=== PATIENT | female | born 1950 | race Caucasian/White ===

== ENCOUNTER 2016-11-11 15:41 | Inpatient (IN) | payer OTHER, BC ==
[~2016-11-11] VITALS: Ht 157.5 cm; Wt 111.1 kg
[2016-11-11] MEDS ORDERED: ACETAMINOPHEN 325 MG TAB PO PRN (21:00)
[2016-11-11] MEDS ORDERED: PATIENT'S ALLERGY INFO NEEDS ENTERED SCH (21:00)
[2016-11-11] MEDS ORDERED: INSPMPNVLG (21:03)
[2016-11-11] MEDS ORDERED: SEVE800T7 PO (21:03)
[2016-11-11] MEDS ORDERED: PRMT10 PO (21:03)
[2016-11-11] MEDS ORDERED: RIFA550T2 PO (21:03)
[2016-11-11] MEDS ORDERED: PANT40TA PO (21:03)
[2016-11-11] MEDS ORDERED: B-CO1CAP17 PO (21:03)
[2016-11-11] MEDS ORDERED: NITR0.4S76 (21:03)
[2016-11-11] MEDS ORDERED: ESTR0.5T3 PO (21:03)
[2016-11-11] MEDS ORDERED: [UNRECOGNIZED DRUG - CODE] PO (21:03)
[2016-11-11] MEDS ORDERED: INSDGIPEN SC (21:03)
[2016-11-11] MEDS ORDERED: LORA-741 PO (21:03)
[2016-11-11] MEDS ORDERED: ZCR20 PO (21:03)
[2016-11-11] MEDS ORDERED: LACT10SO17 (21:03)
[2016-11-11] MEDS ORDERED: ONDA4TAB46 PO (21:03)
[2016-11-11] MEDS ORDERED: GABA-112 PO (21:03)
[2016-11-11 21:13] VITALS: BP 110/62; PULSE 70; TEMP 36.6; O2SAT 98; BMI 43.8
[2016-11-11] MEDS ORDERED: DEXTROSE 50% 50 ML SYR IV PRN (22:45)
[2016-11-11] MEDS ORDERED: GLUCOSE 10 TABS/TUBE PO PRN (22:45)
[2016-11-11] MEDS ORDERED: GLUCAGON FOR INJ 1 MG VIAL SQ PRN (22:45)
[2016-11-11] MEDS ORDERED: GLUCOSE 40% GEL 15 GM TUBE PO PRN (22:45)
[2016-11-11] MEDS ORDERED: LACTULOSE SYRUP 30 GM/45 ML UDP PO PRN (23:00)
[2016-11-11 23:05] LABS: HEMATOCRIT 30.1 % (37-47); MEAN CELL VOLUME 97.4 fL (80-100); MEAN CORPUSCULAR HEMOGLOBIN 31.1 pg (25-34); MEAN PLATELET VOLUME 11.9 fL (7.4-10.4); PLATELET COUNT 128 K/uL (130-400); RED BLOOD COUNT 3.09 M/uL (4.2-5.4); WHITE BLOOD COUNT 6.09 K/uL (4.8-10.8)
[2016-11-11 23:06] LABS: MEAN CORPUSCULAR HGB CONC 31.9 g/dl (32-36)
[2016-11-11 23:08] LABS: INR 1.1 (0.9-1.1); PARTIAL THROMBOPLASTIN RATIO 1.1; PROTHROMBIN TIME (PATIENT) 12.1 SECONDS (9.0-12.0)
[2016-11-11 23:34] LABS: CREATININE 8.1 mg/dl (0.60-1.20)
[2016-11-11 23:35] LABS: BUN/CREATININE RATIO 6.3 (10-20); CALCIUM 9.1 mg/dl (8.5-10.1); MAGNESIUM 3.5 mg/dl (1.8-2.4); POTASSIUM 4.3 mmol/L (3.5-5.1)
[2016-11-11 23:37] VITALS: BP 96/51; PULSE 74; TEMP 36.7; O2SAT 97
--- NOTE | 2016-11-11 23:45 | History and Physical ---
History & Physical Date & Time of Service: Nov 11, 2016 at 23:27 Chief Complaint: Altered Mental Status Primary Care Physician: No Doctor, Assigned History of Present Illness Source: patient Pt is a 66 yo female fwith hx of ESRD on HD, IDDM, GANDHI, Diastolic CHF who presents as a direct transfer from [facility] for altered mental status and lack of dialysis services. Pt is a poor historian so much of hx obtained from ER reports. Pt was found slumped over in her chair by daughter and was confused and lethargic. Pt was due for dialysis today but was unable to make todays session. Pt has has mult admissions for AMS secondary to elev ammonia levels and pt has been recently treated for UTI. Upon evaluation, pt alert and oriented to name and place only. Pt reports no chest pain, fevers, chills, N/V/D, abd pain, urinary sx, palpitation, numbness tingliness. Pt only states "I am here for high ammonia." Social History Smoking Status: Unknown if Ever Smoked Smokeless Tobacco Use: Unknown Allergies Coded Allergies: Levofloxacin (Verified Allergy, Mild, rash/redness at IV site, 11/11/16) Iodinated Diagnostic Agents (Verified Allergy, Unknown, unknown, 11/11/16) Losartan (Verified Allergy, Unknown, rash, 11/11/16) Phenobarbital (Verified Allergy, Unknown, difficulty breathing, 11/11/16) Home Medications Scheduled Estradiol (Estradiol), 1 TAB PO HS Gabapentin (Neurontin), 200 MG PO HS Insulin Aspart (novoLOG INSULIN PUMP ), 7 UNITS N/A AC Insulin Glargine (Lantus Solostar), 25 SC HS Lactulose (Chronulac), 30 ML BID Lanthanum Carbonate (Fosrenol), MG PO TIDM Midodrine (Midodrine HCl), PO MWF Pantoprazole (Protonix), 40 MG PO DAILY Rifaximin (Xifaxan), 1 TAB PO BID Sevelamer Carbonate (Renvela), 2 TAB PO TID Simvastatin (Simvastatin), PO HS Vitamin B Cmplx/Vitc/Folic Ac (Nephrocaps), 1 CAP PO DAILYBD Scheduled PRN Lorazepam (Ativan), 0.5 MG PO for Anxiety/Agitation Ondansetron Hcl (Zofran), 4 MG PO BID PRN for Nausea Miscellaneous Medications Nitroglycerin (Nitroglycerin Lingual) Review of Systems Unable to obtain due to dementia Physical Exam Vital Signs Date Time Temp Pulse Resp B/P Pulse Ox O2 Delivery O2 Flow Rate FiO2 11/11/16 21:13 36.6 70 16 110/62 98 Room Air General Appearance: WD/WN, no apparent distress, + obese Neck: supple, no adenopathy Respiratory/Chest: chest non-tender, lungs clear, normal breath sounds Cardiovascular: regular rate, rhythm, no gallop Abdomen/GI: non tender, soft Neurologic/Psych: alert, + disoriented Diagnostics Laboratory Results Results Past 24 Hours Test 11/11/16 20:47 11/11/16 22:53 Range/Units Bedside Glucose 129 70-90 mg/dl White Blood Count 6.09 4.8-10.8 K/uL Red Blood Count 3.09 4.2-5.4 M/uL Hemoglobin 9.6 12.0-16.0 g/dL Hematocrit 30.1 37-47 % Mean Corpuscular Volume 97.4 80-100 fL Mean Corpuscular Hemoglobin 31.1 25-34 pg Mean Corpuscular Hemoglobin Concent 31.9 32-36 g/dl RDW Standard Deviation 53.6 36.4-46.3 fL RDW Coefficient of Variation 15.2 11.5-14.5 % Platelet Count 128 130-400 K/uL Mean Platelet Volume 11.9 7.4-10.4 fL Prothrombin Time 12.1 9.0-12.0 SECONDS Prothromb Time International Ratio 1.1 0.9-1.1 Activated Partial Thromboplast Time 27.3 21.0-31.0 SECONDS Partial Thromboplastin Ratio 1.1 Ammonia 94.0 11-32 umol/L Impression Assessment and Plan Pt is a 66 yo female with hx of ESRD on dialysis, IDDM, diastolic CHF, GNADHI who presents with AMS and was unable to make her dialysis session which she gets . Pt was a direct transfer from [facility] due to lack of dialysis services Metabolic encephalopathy likely secondary to elev ammonia. Was elevated at 49 at [facility]. Will cont on lactulose and rifaxin and trend ammonia levels. Reviewed records from [facility]: CT head benign UA unremarkable CXR no acute infiltrates or effusions No leukocytosis, fevers or sx of infection Consult PT/OT ESRS on HD (T,,) Missed dialysis session 11/11, will consult nephrology, no urgent dialysis needed IDDM - Cont on lantus and ISS, check HgA1C GANDHI cirrhosis Hx of AVR in 2014 Advanced Directives Existing Advance Directive: No Existing Living Will: Yes Existing Power of Tape Maker: Yes VTE Prophylaxis VTE Risk Assessment Done? Y/N: Yes Risk Level: High
[2016-11-12] VITALS (23 sets, daily range): BP systolic 81–122; BP diastolic 41–81; PULSE 53–75; TEMP 36.6–37.1; O2SAT 96–98; Ht 157.5 cm; Wt 111.1 kg
[2016-11-12] MEDS: HEPARIN SOD 5000 UNIT/0.5 ML CARP SQ SCH ×3 (05:52→20:44)
[2016-11-12 07:33] LABS: ESTIMATED AVERAGE GLUCOSE 154 mg/dl; HA1C FLAG Normal (Normal)
[2016-11-12] MEDS: RIFAXIMIN TAB 550 MG TAB PO SCH ×2 (07:59→20:38)
[2016-11-12 08:01] LABS: BUN/CREATININE RATIO 6.5 (10-20); CALCIUM 9.1 mg/dl (8.5-10.1); CREATININE 8.3 mg/dl (0.60-1.20); POTASSIUM 4.5 mmol/L (3.5-5.1)
--- NOTE | 2016-11-12 08:21 | Clinical Documentation Query ---
Dr. SHELBY [facility] : CLINICAL DOCUMENTATION QUERY Patient is a 66 year old female admitted for "metabolic encephalopathy likely secondary to elev ammonia." in the setting of GANDHI cirrhosis. Ammonia level 49 at [facility] and was 94 on arrival here. She will be treated with lactulose and rifaxin and will be monitored with serial ammonia levels. In your clinical opinion is this patient being managed for: ( x) Hepatic encephalopathy secondary to hyperammonemia ( ) Other explanation of clinical findings (Please Explain) ( ) Unable to determine (Please Define) ( ) Need to Discuss ( ) Not Agree The medical record reflects the following clinical findings, treatment, and risk factors. Clinical Indicators: Altered mental status in the setting of hyperammonemia Treatment: Lactulose, Rifaxin Risk Factors: GANDHI cirrhosis Please clarify and document your clinical opinion in the progress notes and discharge summary. Terms such as "probable", "suspected", "likely", "questionable", "possible", or "still to be ruled out" are acceptable. IF IN AGREEMENT, YOU MUST DOCUMENT ABOVE DIAGNOSTIC STATEMENT IN DAILY PROGRESS NOTES AND DISCHARGE SUMMARY. This document is not part of the patient's record. Thank You, Maikol Sandhu, RN [phone]
[2016-11-12] MEDS ORDERED: LACTULOSE SYRUP 30 GM/45 ML UDP PO PRN (09:00)
[2016-11-12] MEDS: INSULIN ASPART 100 UNITS/ML 3 ML PEN SC SCH ×4 (09:18→21:00)
[2016-11-12] MEDS ORDERED: LIDOCAINE/PRILOCAINE 2.5% EA CRM EXT ONE (11:45)
--- NOTE | 2016-11-12 11:48 | Nephrology Consultation ---
Nephrology Consultation Date & Providers Date of Consultation: Nov 12, 2016. Primary Care Provider: Griselda Doctor, Assigned Referring Provider: Reason for Consultation End-stage renal disease on hemodialysis. 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 Nephrologic consult was requested to provide hemodialysis while inpatient. Electronic medical records including labs and imaging are reviewed in detail during patient's visit. She was brought to ED yesterday after she was found to be lethergic by her daughter with change in her mental status. in ED her ammonia level was 94. She has GANDHI and h/o recurrent hospital admission for AMS with hepatic encephalopathy. She was started on lactulose and rifaximin and mental status improved although she still feels somewhat confused. Yolande has end-stage renal disease and has been on dialysis TTS since December 2014 via a right brachiocephalic AV fistula. She dialysis on Thursday, , Thursday at [facility] dialysis unit. She was started on dialysis for acute kidney injury after CABG and kidney function eventually did not recover. Currently her BP, volume status and electrolytes acceptable. Her BP usually runs low and get midodrine before rx. Allergies Coded Allergies: Levofloxacin (Verified Allergy, Mild, rash/redness at IV site, 11/11/16) Iodinated Diagnostic Agents (Verified Allergy, Unknown, unknown, 11/11/16) Losartan (Verified Allergy, Unknown, rash, 11/11/16) Phenobarbital (Verified Allergy, Unknown, difficulty breathing, 11/11/16) Inpatient Medications Current Inpatient Medications Medications (Trade) Dose Ordered Sig/Ronn Route Start Time Stop Time Status Last Admin Dose Admin Heparin Sodium (Porcine) (Heparin Sq 5000 Unit/0.5ml) 5,000 unit Q8 SQ 11/12/16 06:00 12/12/16 05:59 11/12/16 05:52 5,000 UNIT Acetaminophen (Tylenol Tab) 650 mg Q4H PRN PO 11/11/16 21:00 12/11/16 20:59 Ondansetron HCl (Zofran Inj) 4 mg Q6H PRN IV 11/11/16 21:00 12/11/16 20:59 Insulin Aspart (novoLOG ASPART) SLIDING SCALE If C... ACHS SC 11/12/16 07:00 12/12/16 06:59 Glucose (Glucose 40% Gel) 15-30 GRAMS 15 GRAMS... UD PRN PO 11/11/16 22:45 12/11/16 22:44 Glucose (Glucose Chew Tab) 4-8 Tablets 4 Tabl... UD PRN PO 11/11/16 22:45 12/11/16 22:44 Dextrose (Dextrose 50% 50ML Syringe) 25-50ML OF 50% DW IV FOR... UD PRN IV 11/11/16 22:45 12/11/16 22:44 Glucagon (Glucagon Inj) 1 mg UD PRN SQ 11/11/16 22:45 12/11/16 22:44 Rifaximin (Xifaxan Tab) 550 mg BID PO 11/12/16 09:00 12/12/16 08:59 Lactulose (Chronulac Syrup) 30 gm QID PRN PO 11/12/16 09:00 12/12/16 08:59 Social History Smoking Status: Unknown if Ever Smoked Smokeless Tobacco Use: Unknown Review of Systems A complete review of systems was performed. Pertinent positives are noted above. All other systems are negative. Physical Exam Date Time Temp Pulse Resp B/P Pulse Ox O2 Delivery O2 Flow Rate FiO2 11/12/16 04:00 Room Air 11/12/16 03:31 36.8 67 16 107/52 96 Room Air 11/12/16 00:00 Room Air 11/11/16 23:37 36.7 74 16 96/51 97 Room Air 11/11/16 21:13 36.6 70 16 110/62 98 Room Air GENERAL: Middle aged female, AAA x 3, pleasant, healthy-appearing, not in any distress. HEENT: Atraumatic, normocephalic. NECK: Supple, no JVD, no carotid bruit appreciated. ENT: No sinus tenderness MOUTH and THROAT: Moist oral mucosa, no oral ulcer or pharyngeal erythema RESPIRATORY: Normal breathing efforts, no accessory muscle use, clear to auscultation bilaterally, no wheezes or rales. CARDIOVASCULAR: S1, S2 normal, rate rhythm regular. ABDOMEN: Soft, nontender, positive bowel sound. MUSCULOSKELETAL: No CVA tenderness. No joint swelling, erythema or tenderness. Normal range of motion. SKIN: No skin rash EXTREMITY: No lower extremity edema NEURO: No gross focal neurological deficit, speech fluent. PSYCHIATRY: Normal mood and judgment Laboratory Results Last 24 Hours Test 11/11/16 20:47 11/11/16 22:53 11/12/16 06:50 Bedside Glucose 129 mg/dl White Blood Count 6.09 K/uL Red Blood Count 3.09 M/uL Hemoglobin 9.6 g/dL Hematocrit 30.1 % Mean Corpuscular Volume 97.4 fL Mean Corpuscular Hemoglobin 31.1 pg Mean Corpuscular Hemoglobin Concent 31.9 g/dl RDW Standard Deviation 53.6 fL RDW Coefficient of Variation 15.2 % Platelet Count 128 K/uL Mean Platelet Volume 11.9 fL Prothrombin Time 12.1 SECONDS Prothromb Time International Ratio 1.1 Activated Partial Thromboplast Time 27.3 SECONDS Partial Thromboplastin Ratio 1.1 Sodium Level 141 mmol/L 141 mmol/L Potassium Level 4.3 mmol/L 4.5 mmol/L Chloride Level 99 mmol/L 99 mmol/L Carbon Dioxide Level 25 mmol/L 25 mmol/L Anion Gap 17.0 mmol/L 17.0 mmol/L Blood Urea Nitrogen 51 mg/dl 54 mg/dl Creatinine 8.10 mg/dl 8.30 mg/dl Est Creatinine Clear Calc Drug Dose 7.8 ml/min 7.7 ml/min Estimated GFR () 5.4 5.2 Estimated GFR (Non- 4.6 4.5 BUN/Creatinine Ratio 6.3 6.5 Random Glucose 145 mg/dl 123 mg/dl Calcium Level 9.1 mg/dl 9.1 mg/dl Magnesium Level 3.5 mg/dl Ammonia 94.0 umol/L Estimated Average Glucose 154 mg/dl Hemoglobin A1c 7.0 % Impression (1) End stage renal disease on dialysis (2) Anemia (3) Secondary hyperparathyroidism of renal origin (4) Autonomic dysfunction (5) Metabolic encephalopathy Yolande is a 66 y o f with ESRD, HTN, GANDHI admitted with AMS due to metabolic encephalopathy. Missed HD yesterday but currently BP, volume status and electrolyte stable. Clinically improving. Has h/o GANDHI with multiple hospital admission for AMS and hepatic encephalopathy. H/O CAD and had CABG before. Recommendations --schedule for HD as she missed HD yesterday, then keep on schedule for tomorrow. --Midodrine 5 mg before rx --continue on nephrocap -- start on TUMS with meal. -- pt will get RYAN at out pt unit as per protocol. -- renal diet, avoid IV fluid. Thank you for allowing me to participate in your patient's care. It was a pleasure to see Yolande. This chart was completed utilizing [employer] Speech and voice recognition software. Grammatical errors, random word insertions, pronoun errors and incomplete sentences are occasional consequences of this system. Any questions or concerns about the content, text or information contained within the body of this dictation should be addressed directly to the physician for clarification.
[2016-11-12 12:03] LABS: HEPATITIS B AB POS
[2016-11-12] MEDS ORDERED: CALCIUM CARBONATE 500 MG CHEWABLE PO PRN (12:15)
[2016-11-12] MEDS ORDERED: MIDODRINE 2.5 MG TAB PO SCH (13:00)
[2016-11-12] MEDS: LACTULOSE SYRUP 30 GM/45 ML UDP PO SCH ×3 (13:00→20:37)
--- NOTE | 2016-11-12 13:59 | CARDIOLOGY CONSULTATION ---
DATE OF CONSULTATION: 11/12/2016 REFERRING PHYSICIAN: Salazar Thompson MD ATTENDING PHYSICIAN: Ria Blackmon MD CONSULTATION BY: Eric Bolivar MD HISTORY OF PRESENT ILLNESS: The patient is a 66-year-old white female who was transferred from [facility] in [place], [place] yesterday to [facility]. She normally receives her tertiary care at [facility]. Because [place] could not accommodate her transfer, she was sent to [facility]. The patient has end-stage renal disease since 2014. She requires dialysis for this. She dialyzes on Tuesdays, , and Saturdays. The patient lives alone. She was found by one of her daughters to be somnolent. She was brought by ambulance to [facility]. She was then transferred to [facility]. The patient had recently been admitted to [facility] for lethargy and somnolence from elevated ammonia levels. She has a history of nonalcoholic cirrhosis. She was found to have elevated ammonia level yesterday. She also needed to be sent to facility, which could perform hemodialysis. The patient has received lactulose after arrival to [facility]. With this, her mental status has improved. This morning at the time of my exam, she was awake and alert. She did admit that she was speaking more slowly than usual. She states that when her ammonia level arises, this is a frequent finding. She was able to answer all my questions. She is oriented to person, place, and time. Her heart disease is longstanding. She denies any history of rheumatic fever. She states she was followed with yearly echocardiograms to follow her aortic and mitral valves. In December 2014, she underwent aortic valve replacement at [facility]. This was with a bioprosthetic valve. She also underwent mitral valve repair at that time. Three days of post-valve surgery, she had implantation of a dual chamber permanent pacemaker. She states that prior to undergoing the cardiac surgery, cardiac catheterization did not reveal any significant underlying coronary artery disease. She states that after her valve replacement surgery, she had episodes of atrial fibrillation. She was started on anticoagulation therapy with warfarin. She then developed significant refractory anemia. She had up to 4 transfusions of packed red blood cells. She also underwent iron transfusions. She states that upper endoscopy and colonoscopy revealed no bleeding source. She subsequently had a camera capsule study. The source of bleeding was felt to be her small bowel. The warfarin was discontinued. Since then, her hemoglobin has been stable by her account. She has required no further transfusions of packed red blood cells or irons despite her account. She states she has a history of "congestive heart failure." Nonalcoholic liver disease. No history of hypertension. She does have diabetes mellitus, which is insulin dependent. She does have dyslipidemia. She denies any chest pain or other anginal type pains. Normally, she has no dyspnea at rest or with her activities. No orthopnea or PND. She experiences palpitations approximately every 3 months. These can last for 15 minutes at a time. No associated symptoms with them. No lightheadedness or syncope. Occasional ankle, leg, and pedal edema. This improves after dialysis. PAST MEDICAL HISTORY: 1. Valvular heart disease as above. 2. Status post implantation of dual chamber pacemaker. She does not know the brand of her generator. Her pacemaker is followed every 6 months by her mail carrier and clerk in [place], Dr. Brett Pena. 3. Insulin-dependent diabetes mellitus. 4. Dyslipidemia. 5. GANDHI. 6. End-stage renal disease. Hemodialysis on Tuesdays, , and Saturdays. 7. No history of CVA. 8. She denies a history of pulmonary disease. 9. History of GI bleeding as documented above. Small bowel source. PAST SURGICAL HISTORY: 1. As above. 2. Status post section x2. 3. Status post DIMAS-BSO 2000. 4. Status post appendectomy. ALLERGIES AND ADVERSE DRUG REACTIONS: LEVOFLOXACIN, IODINATED CONTRAST, LOSARTAN, AND PHENOBARBITAL. SOCIAL HISTORY: The patient lives alone. Two daughters. She is a . She denies ever having smoked cigarettes. She has never drunk alcohol. FAMILY HISTORY: Noncontributory. REVIEW OF SYSTEMS: 1. As above. 2. No focal motor weakness. 3. No HEENT complaints. 4. Good appetite. Occasional left upper quadrant abdominal discomfort after meals. 5. No symptoms of GI bleeding. 6. No significant urine output. She states that she produces a "trickle" of the urine. She states she is prone to urinary tract infections. Recent urinary tract infection, which was felt contribute to confusion. 7. She dialyzes via a right upper arm AV fistula. 8. No pulmonary complaints. CURRENT MEDICATIONS: NovoLog sliding scale insulin, rifaximin 550 mg b.i.d., heparin subQ 5000 units q. 8 hours, Nephrocaps 1 cap daily, midodrine 5 mg daily, and several p.r.n. medications. PHYSICAL EXAMINATION: GENERAL: The patient is sitting up in her bed. No distress. VITAL SIGNS: This morning show oral temperature of 36.6, pulse 71, blood pressure 96/52, and pulse oximetry room air 96%. Review of monitor history reveals sinus rhythm. Last evening, episodes of sinus rhythm with frequent premature supraventricular beats, cannot exclude brief episodes of atrial fibrillation or flutter, occasional ventricular paced beat. GENERAL APPEARANCE: Shows her to be in no distress. HEAD: Normal. EYES: Pupils equal and round. Anicteric. No xanthelasma. NECK: Thick neck. Difficult to evaluate jugular venous pressure. Carotids 2/2 bilaterally. Normal upstroke. No bruits. LUNGS: On initial exam, crackles at the bases. These resolved with continued deep breathing. HEART: PMI not palpable. No lifts or heaves. Regular rate and rhythm. 2/6 systolic murmur at the second intercostal space and left upper sternal border. No diastolic murmur or rub. ABDOMEN: Obese. Soft. Nontender. No palpable masses or organomegaly. No bruits. EXTREMITIES: Chronic venous stasis changes and erythema of both lower legs. Trace to 1+ pretibial edema bilaterally. NEUROLOGIC: Alert and oriented x3. She does speak slowly. She can move all extremities. Echocardiogram performed today was a preliminarily reviewed by me. Moderate LVH, normal LV systolic function, right ventricular dilatation with decreased systolic function, flattening of the intraventricular septum consistent with right ventricular pressure and volume overload, no significant mitral regurgitation, bioprosthetic aortic valve functioning properly, evidence of mitral valve repair, and [id number] tricuspid regurgitation. As stated above, this was a very pulmonary review of the echo immediately after it was performed. Full report is pending. She does appear to have at least moderate pulmonary hypertension. Dilated inferior vena cava consistent with elevated central venous pressure. LABORATORY DATA: Labs on November 11 with hemoglobin 9.6, hematocrit 30.1, and platelet count 128. Her ammonia level yesterday was 94. Today 117. Calcium 9.1. Labs today with sodium 141, potassium 4.5, chloride 99, carbon dioxide 25, BUN 54, creatinine 8.30, and random glucose 123. ASSESSMENT: 1. Status post aortic valve replacement and mitral valve repair. No current cardiac symptoms. No symptoms of heart failure. 2. No history of obstructive coronary artery disease. No anginal type symptoms. 3. Normal LV systolic function on echocardiogram today. She does have left ventricular hypertrophy. The aortic bioprosthetic valve appears to be functioning properly. No evidence of any significant mitral regurgitation. Status post aortic valve replacement and mitral valve repair in 2014. 4. Dual-chamber pacemaker. She likely had complete heart block following her aortic valve surgery in 2014. On monitoring, the pacemaker is functioning properly. 5. History of atrial fibrillation by her account. Monitor last night with episodes of possible atrial fibrillation and flutter. These were of brief duration. 6. She is on midodrine. This suggests that she has significant postural lightheadedness. 7. History of significant GI bleeding when on anticoagulation therapy. 8. The patient states that she would refuse any administration of full-dose anticoagulation. 9. Electrocardiogram with sinus rhythm, first degree AV block, premature ventricular beat, right bundle-branch block, and left anterior fascicular block. 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 She does have the permanent pacemaker. RECOMMENDATIONS: 1. No further cardiac workup or evaluation at this time. 2. If she had any sustained atrial fibrillation with rapid ventricular response, would need to administer AV ly blocking medication. Would give metoprolol for this. Diltiazem may cause her to have a low blood pressure. 3. No full-dose anticoagulation. Significant GI bleeding in the past when on full-dose anticoagulation. Additionally, the patient states that she would absolutely refuse any full-dose anticoagulation. 4. Treatment of her metabolic disorder and renal disease by the primary service and nephrology service. 5. Outpatient cardiology followup with her primary mail carrier and clerk, Dr. Brett Pena in [place], [place]. Thank you for asking us to see this patient in cardiology consultation. HENNY
--- NOTE | 2016-11-12 15:41 | Hospitalist Progress Note ---
Hospitalist Progress Note Date of Service Nov 12, 2016. Subjective feeling much better but still feels that her mind is not clear. feeling foggy Constitutional: No fever Respiratory: No shortness of breath Cardiovascular: No chest pain Abdomen: No nausea, No pain Neurologic: No memory loss, No numbness/tingling, No weakness Objective Vital Signs Date Time Temp Pulse Resp B/P Pulse Ox O2 Delivery O2 Flow Rate FiO2 11/12/16 14:30 65 81/50 11/12/16 14:15 67 83/41 11/12/16 14:00 69 84/41 11/12/16 13:45 66 87/44 11/12/16 13:38 72 92/49 11/12/16 13:25 37.1 75 95/50 11/12/16 12:36 96 Room Air 11/12/16 12:16 36.6 72 20 122/73 97 Room Air 11/12/16 08:01 96 Room Air 11/12/16 08:01 36.6 71 16 96/52 98 Room Air 11/12/16 04:00 Room Air 11/12/16 03:31 36.8 67 16 107/52 96 Room Air 11/12/16 00:00 Room Air 11/11/16 23:37 36.7 74 16 96/51 97 Room Air 11/11/16 21:13 36.6 70 16 110/62 98 Room Air Physical Exam General Appearance: no apparent distress Respiratory/Chest: lungs clear, no respiratory distress Cardiovascular: regular rate, rhythm Abdomen: normal bowel sounds, non tender, soft Neurologic/Psychiatric: alert, oriented x 3 Skin: warm/dry Laboratory Results Last 24 Hours Test 11/11/16 20:47 11/11/16 22:53 11/12/16 06:50 11/12/16 10:10 Bedside Glucose 129 mg/dl White Blood Count 6.09 K/uL Red Blood Count 3.09 M/uL Hemoglobin 9.6 g/dL Hematocrit 30.1 % Mean Corpuscular Volume 97.4 fL Mean Corpuscular Hemoglobin 31.1 pg Mean Corpuscular Hemoglobin Concent 31.9 g/dl RDW Standard Deviation 53.6 fL RDW Coefficient of Variation 15.2 % Platelet Count 128 K/uL Mean Platelet Volume 11.9 fL Prothrombin Time 12.1 SECONDS Prothromb Time International Ratio 1.1 Activated Partial Thromboplast Time 27.3 SECONDS Partial Thromboplastin Ratio 1.1 Sodium Level 141 mmol/L 141 mmol/L Potassium Level 4.3 mmol/L 4.5 mmol/L Chloride Level 99 mmol/L 99 mmol/L Carbon Dioxide Level 25 mmol/L 25 mmol/L Anion Gap 17.0 mmol/L 17.0 mmol/L Blood Urea Nitrogen 51 mg/dl 54 mg/dl Creatinine 8.10 mg/dl 8.30 mg/dl Est Creatinine Clear Calc Drug Dose 7.8 ml/min 7.7 ml/min Estimated GFR () 5.4 5.2 Estimated GFR (Non- 4.6 4.5 BUN/Creatinine Ratio 6.3 6.5 Random Glucose 145 mg/dl 123 mg/dl Calcium Level 9.1 mg/dl 9.1 mg/dl Magnesium Level 3.5 mg/dl Ammonia 94.0 umol/L Estimated Average Glucose 154 mg/dl Hemoglobin A1c 7.0 % Hepatitis B Surface Antigen NEG Hepatitis B Surface Antibody POS Test 11/12/16 11:07 11/12/16 11:34 Ammonia 117.0 umol/L Bedside Glucose 258 mg/dl Assessment and Plan 66 yo female with hx of ESRD on dialysis, IDDM, diastolic CHF, GANDHI who presents with AMS and was unable to make her dialysis session which she gets , .,. Pt was a direct transfer from [facility] due to lack of dialysis services Hepatic encephalopathy sec to Hyperammonemia - Ammonia elevated at 49 at [facility]. Per records from [facility] - CT head benign, UA remarkable. CXR no acute infiltrates or effusions. No leukocytosis, fevers or sx of infection cont on lactulose and rifaxin and trending ammonia levels. Much alert. Consult PT/OT GANDHI cirrhosis - lactulose, rifaxin hx of Paroxysmal A fib - Episodes of a fib/flutter last night. Now in NSR. Cardiology consulted. Recommended - If she had any sustained atrial fibrillation with rapid ventricular response, would need to administer AV ly blocking medication - B natalya. CCB may cause low blood pressure. Patient absolutely refuses AC due to h/o GI bleed. Hx of GI bleeding when on anticoagulation Postural hypotension - On midodrine ESRS on HD (,,) Missed dialysis session 11/11 - for HD. nephrology consulted. IDDM - Cont on lantus and ISS, check HgA1C Hx of AVR in 2015 - stable. Echo with well functioning bioprosthetic valve. 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 Functioning properly. Anticipate d/c home in am if mentation continues to improve Heparin
--- NOTE | 2016-11-12 17:01 | ECHOCARDIOGRAM REPORT ---
*NOTICE TO RECEIVING REPUBLICAN AGENCY This information is strictly Confidential and protected under [place] law. [place] law prohibits you from making any further disclosure of this information unless further disclosure is expressly permitted by the written consent of the person to whom it pertains or is authorized by law. A general authorization for the release of medical or other information is not sufficient for this purpose. Hospital accepts no responsibility if the information is made available to any other person, INCLUDING THE PATIENT. Interpretation Summary * Name: CT PARRA Study Date: 11/12/2016 07:01 AM BP: 107/52 mmHg * Patient Location: C.2T\S\S241\S\1 HR: 67 * : 1950 (M/d/yyyy) Gender: Female Height: 62 in * Age: 66 yrs Ethnicity: CA Weight: 239 lb * Ordering Physician: Salazar Thompson * Performed By: Karey Dhillon RDCS * * Reason For Study: Atrial fibrillation * BSA: 2.1 m2 * -- Conclusions -- * Left ventricular systolic function is normal. * No regional wall motion abnormalities noted. * Ejection Fraction = 60-65%. * There is mild concentric left ventricular hypertrophy. * Diastolic dysfunction, Grade II, consistent with elevated left atrial pressure. * The prosthetic aortic valve is well-seated. * There is mild mitral regurgitation. * There is mild mitral stenosis. * At least moderate tricuspid regurgitation. Procedure Details * A complete two-dimensional transthoracic echocardiogram was performed (2D, M-mode, Doppler and color flow Doppler). * A contrast injection of Definity was performed to improve assessment of LV function. * Contrast was injected into an intravenous site in the left arm. * One vial of Definity ultrasound contrast was diluted in normal saline to a total volume of 10 ml. A total of '2' ml of solution was administered during imaging. * Lot # [id number] of Definity utilized for procedure. * Expiration date APR 18. * The attending nurse who injected the contrast agent was Tyler Newell RN. Left Ventricle * The left ventricle is normal in size. * There is mild concentric left ventricular hypertrophy. * Ejection Fraction = 60-65%. * Left ventricular systolic function is normal. * No regional wall motion abnormalities noted. Right Ventricle * The right ventricle is not well visualized. * The right ventricular systolic function is normal as assessed by tricuspid annular plane systolic excursion (TAPSE) (normal >1.5 cm). Atria * The left atrium is mildly dilated. * The right atrium is mildly dilated. * There is no evidence of atrial septal defect, but resolution does not allow assessment for a patent foramen ovale. Mitral Valve * Calcified mitral apparatus. * There is mild mitral stenosis. * There is mild mitral regurgitation. Tricuspid Valve * The tricuspid valve is not well visualized. * There is no tricuspid stenosis. * At least moderate tricuspid regurgitation. * Right ventricular systolic pressure is elevated at 30-40mmHg. Aortic Valve * No aortic regurgitation is present. * The prosthetic aortic valve is well-seated. * The gradient is normal for this prosthetic aortic valve. Pulmonic Valve * The pulmonary valve is not well seen, but the Doppler examination is normal without significant regurgitation or stenosis. * Trace pulmonic valvular regurgitation. Great Vessels * The aortic root is normal size. * The pulmonary is not well visualized. Pericardium/Pleural * There is no pericardial effusion. Great Vessels * Normal inferior vena cava size and collapsability with sniff indicates a normal right atrial pressure of 3 mmHg Left Ventricular Diastolic Function * Diastolic dysfunction, Grade II, consistent with elevated left atrial pressure. MMode 2D Measurements and Calculations IVSd 1.2 cm LVIDd 3.2 cm LVIDs 1.9 cm LVPWd 1.6 cm IVS/LVPW 0.75 FS 39.4 % EDV(Teich) 39.9 ml ESV(Teich) 11.5 ml EF(Teich) 71.3 % EDV(cubed) 31.8 ml ESV(cubed) 7.1 ml EF(cubed) 77.7 % LV mass(C)d 151.3 grams LV mass(C)dI 73.4 grams/m\S\2 CO(Teich) 1.9 l/min CI(Teich) 0.94 l/min/m\S\2 SV(Teich) 28.5 ml SI(Teich) 13.8 ml/m\S\2 CO(cubed) 1.7 l/min CI(cubed) 0.81 l/min/m\S\2 SV(cubed) 24.7 ml SI(cubed) 12.0 ml/m\S\2 LA dimension 3.6 cm asc Aorta Diam 3.2 cm LVAd ap4 26.7 cm\S\2 LVLd ap4 7.7 cm EDV(MOD-sp4) 76.9 ml LVAs ap4 12.6 cm\S\2 LVLs ap4 5.6 cm ESV(MOD-sp4) 24.4 ml EF(MOD-sp4) 68.3 % LVAd ap2 32.0 cm\S\2 LVLd ap2 7.9 cm EDV(MOD-sp2) 109.0 ml LVAs ap2 17.6 cm\S\2 LVLs ap2 6.7 cm ESV(MOD-sp2) 37.8 ml EF(MOD-sp2) 65.3 % CO(MOD-sp4) 3.6 l/min CI(MOD-sp4) 1.7 l/min/m\S\2 SV(MOD-sp4) 52.5 ml SI(MOD-sp4) 25.5 ml/m\S\2 CO(MOD-sp2) 4.8 l/min CI(MOD-sp2) 2.3 l/min/m\S\2 SV(MOD-sp2) 71.2 ml SI(MOD-sp2) 34.5 ml/m\S\2 Doppler Measurements and Calculations MV E max jerrica 221.7 cm/sec MV A max jerrica 167.1 cm/sec MV E/A 1.3 MV V2 max 264.1 cm/sec MV max PG 27.9 mmHg MV V2 mean 145.0 cm/sec MV mean PG 10.2 mmHg MV V2 VTI 83.8 cm MV P1/2t max jerrica 264.1 cm/sec MV P1/2t 118.1 msec MVA(P1/2t) 1.9 cm\S\2 MV dec slope 655.0 cm/sec\S\2 MV dec time 0.43 sec Ao V2 max 268.7 cm/sec Ao max PG 28.9 mmHg Ao max PG (full) 21.1 mmHg Ao V2 mean 179.4 cm/sec Ao mean PG 14.8 mmHg Ao V2 VTI 57.6 cm LV V1 max PG 7.8 mmHg LV V1 max 139.6 cm/sec PA V2 max 154.7 cm/sec PA max PG 9.6 mmHg PA acc slope 859.9 cm/sec\S\2 PA acc time 0.12 sec PI max jerrica 180.5 cm/sec PI max PG 13.0 mmHg PI dec slope 177.3 cm/sec\S\2 PI P1/2t 298.2 msec TR max jerrica 246.9 cm/sec PA pr(Accel) 26.7 mmHg
[2016-11-12] MEDS: ONDANSETRON INJ 2 MG/ML 2 ML VIAL IV PRN (19:57)
[2016-11-13] VITALS (21 sets, daily range): BP systolic 94–129; BP diastolic 45–78; PULSE 50–76; TEMP 36.5–36.9; O2SAT 95–97
[2016-11-13] MEDS: HEPARIN SOD 5000 UNIT/0.5 ML CARP SQ SCH ×2 (05:11→13:17)
[2016-11-13] MEDS: INSULIN ASPART 100 UNITS/ML 3 ML PEN SC SCH ×2 (06:56→12:47)
[2016-11-13] MEDS ORDERED: NEPHROCAPS PO SCH (09:00)
--- NOTE | 2016-11-13 09:55 | Discharge Instructions ---
Discharge Instructions Admission Reason for Admission: Altered Mental Status Discharge Discharge Diagnosis / Problem: Hepatic Encephalopathy Discharge Goals Goal(s): Improve disease control Activity Recommendations Activity Limitations: resume your previous activity Follow up with family physician in one week Keep up with your dialysis appointments Follow up with cardiology as scheduled . Current Hospital Diet Patient's current hospital diet: Renal Diet Discharge Diet Recommended Diet: AHA Diet (Heart Healthy), Renal Diet Pending Studies Studies pending at discharge: no Laboratory Results Hemoglobin A1c Test 11/12/16 06:50 Range/Units Estimated Average Glucose 154 mg/dl Hemoglobin A1c 7.0 H 4.5-5.6 % Medical Emergencies . Who to Call and When: Medical Emergencies: If at any time you feel your situation is an emergency, please call 911 immediately. . Non-Emergent Contact Non-Emergency issues call your: Primary Care Provider . . "Provider Documentation" section prepared by Ria Blackmon. VTE Core Measure Inpt VTE Proph given/why not?: Unfractionated heparin SQ
--- NOTE | 2016-11-13 10:20 | Dialysis Progress Note ---
Hemodialysis Note Date of Service Nov 13, 2016. Chief Complaint F/U for End-stage renal disease on hemodialysis. Louise Lanier was seen and examined during HD Rx this am. She has been tolerating HD well, BP stable, asymptomatic. Review of Systems A complete review of systems was performed. Pertinent positives are noted above. All other systems are negative. Vital Signs Last 8 Hrs Date Time Temp Pulse Resp B/P Pulse Ox O2 Delivery O2 Flow Rate FiO2 11/13/16 09:45 65 111/54 11/13/16 09:30 55 104/65 11/13/16 09:15 55 110/56 11/13/16 09:00 60 105/55 11/13/16 08:45 57 105/46 11/13/16 08:30 65 94/53 11/13/16 08:15 67 105/45 11/13/16 08:00 68 110/51 11/13/16 07:45 70 110/48 11/13/16 07:30 69 103/55 11/13/16 07:15 63 103/53 11/13/16 07:00 68 102/50 11/13/16 06:45 68 99/51 11/13/16 06:30 65 101/50 11/13/16 06:15 66 105/55 11/13/16 06:00 61 101/57 11/13/16 06:00 36.9 65 95/50 11/13/16 04:00 Room Air 11/13/16 03:05 36.7 76 18 129/78 95 Room Air I & O 24-Hour Column 11/13/16 08:00 Intake Total 360 ml Balance 360 ml Last Recorded Weight Weight (Kilograms): 111.100 Physical Exam GENERAL: middle aged, female, AAA x 3, pleasant, healthy-appearing, not in any distress. NECK: Supple, no JVD. RESPIRATORY: Normal breathing efforts, no accessory muscle use, clear to auscultation bilaterally, no wheezes or rales. CARDIOVASCULAR: S1, S2 normal, rate rhythm regular. EXTREMITY: No lower extremity edema NEURO: speech fluent. PSYCHIATRY: Normal mood and judgment Social History Smokeless Tobacco Use: Unknown Laboratory Results Past 24 Hours Test 11/12/16 11:07 11/12/16 11:34 11/12/16 18:38 11/12/16 20:18 Ammonia 117.0 umol/L (11-32) Bedside Glucose 258 mg/dl (70-90) 110 mg/dl (70-90) 145 mg/dl (70-90) Test 11/13/16 04:44 11/13/16 05:20 11/13/16 08:27 Bedside Glucose 122 mg/dl (70-90) Allergies Coded Allergies: Levofloxacin (Verified Allergy, Mild, rash/redness at IV site, 11/11/16) Iodinated Diagnostic Agents (Verified Allergy, Unknown, unknown, 11/11/16) Losartan (Verified Allergy, Unknown, rash, 11/11/16) Phenobarbital (Verified Allergy, Unknown, difficulty breathing, 11/11/16) Medications Current Inpatient Medications Medications (Trade) Dose Ordered Sig/Ronn Route Start Time Stop Time Status Last Admin Dose Admin Heparin Sodium (Porcine) (Heparin Sq 5000 Unit/0.5ml) 5,000 unit Q8 SQ 11/12/16 06:00 12/12/16 05:59 11/13/16 05:11 5,000 UNIT Acetaminophen (Tylenol Tab) 650 mg Q4H PRN PO 11/11/16 21:00 12/11/16 20:59 11/12/16 22:51 650 MG Ondansetron HCl (Zofran Inj) 4 mg Q6H PRN IV 11/11/16 21:00 12/11/16 20:59 11/12/16 19:57 4 MG Insulin Aspart (novoLOG ASPART) SLIDING SCALE If C... ACHS SC 11/12/16 07:00 12/12/16 06:59 11/12/16 20:43 2 UNITS Glucose (Glucose 40% Gel) 15-30 GRAMS 15 GRAMS... UD PRN PO 11/11/16 22:45 12/11/16 22:44 Glucose (Glucose Chew Tab) 4-8 Tablets 4 Tabl... UD PRN PO 11/11/16 22:45 12/11/16 22:44 Dextrose (Dextrose 50% 50ML Syringe) 25-50ML OF 50% DW IV FOR... UD PRN IV 11/11/16 22:45 12/11/16 22:44 Glucagon (Glucagon Inj) 1 mg UD PRN SQ 11/11/16 22:45 12/11/16 22:44 Rifaximin (Xifaxan Tab) 550 mg BID PO 11/12/16 09:00 12/12/16 08:59 11/12/16 20:38 550 MG Calcium Carbonate (Tums Chew Tab) 500 mg AC PRN PO 11/12/16 12:15 12/12/16 12:14 Vitamin B Complex/ Vit C/Folic Acid (Nephrocaps) 1 cap QAM PO 11/13/16 09:00 12/13/16 08:59 Lactulose (Chronulac Syrup) 30 gm QID PO 11/12/16 13:00 12/12/16 12:59 11/12/16 20:37 30 GM Impression (1) End stage renal disease on dialysis (2) Anemia (3) Secondary hyperparathyroidism of renal origin (4) Autonomic dysfunction (5) Metabolic encephalopathy Yolande is a 66 y o f with ESRD, HTN, GANDHI admitted with AMS due to metabolic encephalopathy. Missed HD yesterday but currently BP, volume status and electrolyte stable. Clinically improving. Has h/o GANDHI with multiple hospital admission for AMS and hepatic encephalopathy. H/O CAD and had CABG before. Recommendations --currently having HD and tolerating well. --continue on nephrocap and TUMS with meal. -- pt will get RYAN at out pt unit as per protocol. -- renal diet, avoid IV fluid. --OK to be discharged. This chart was completed utilizing [employer] Speech and voice recognition software. Grammatical errors, random word insertions, pronoun errors and incomplete sentences are occasional consequences of this system. Any questions or concerns about the content, text or information contained within the body of this dictation should be addressed directly to the physician for clarification.
[2016-11-13] MEDS: LACTULOSE SYRUP 30 GM/45 ML UDP PO SCH ×2 (10:37→12:56)
[2016-11-13] MEDS: RIFAXIMIN TAB 550 MG TAB PO SCH (10:38)
[2016-11-13 11:26] LABS: BASO % 1.6 %; BASO ABS # 0.07 K/uL (0-0.2); COMPLETE YES; EOS % 2.8 %; LYMPH % 26.5 %; LYMPH ABS # 1.14 K/uL (1.2-3.4); MEAN CELL VOLUME 96.4 fL (80-100); MEAN CORPUSCULAR HEMOGLOBIN 31.3 pg (25-34); MEAN CORPUSCULAR HGB CONC 32.5 g/dl (32-36); MEAN PLATELET VOLUME 11.9 fL (7.4-10.4); MONO % 11.9 %; NEUT % 57.2 %; PLATELET COUNT 118 K/uL (130-400); RED BLOOD COUNT 3.32 M/uL (4.2-5.4)
[2016-11-13 12:10] LABS: BUN/CREATININE RATIO 3.5 (10-20); CALCIUM 8.9 mg/dl (8.5-10.1); POTASSIUM 3.5 mmol/L (3.5-5.1)
[2016-11-13 12:35] LABS: CREATININE 2.4 mg/dl (0.60-1.20)
[2016-11-13] MEDS: ONDANSETRON INJ 2 MG/ML 2 ML VIAL IV PRN (13:03)
--- NOTE | 2016-11-13 16:28 | Discharge Summary ---
Discharge Summary Admission Date: Nov 11, 2016 at 19:38 Discharge Date: Nov 13, 2016 Discharge Disposition: Home Principal Diagnosis: Hepatic Encephalopathy Consultations: Cardiology - Dr Bolivar Nephrology- Dr. Calloway Medication Reconciliation Continued Medications: Estradiol (Estradiol) 0.5 Mg Tab 1 TAB PO HS for 30 Days, #2 TABS 11 Refills Gabapentin (Neurontin) 100 Mg Cap 200 MG PO HS, CAP Insulin Aspart (novoLOG INSULIN PUMP ) 1 Ea Inj 7 UNITS N/A AC, EA Insulin Glargine (Lantus Solostar) 100 Unit/Ml Inj 25 SC HS, PEN Lactulose (Chronulac) 10 Gm/15 Ml Syrp 30 ML BID Lanthanum Carbonate (Fosrenol) 1,000 Mg Pow MG PO TIDM Lorazepam (Ativan) 0.5 Mg Tab 0.5 MG PO PRN for Anxiety/Agitation, TAB Midodrine (Midodrine HCl) 10 Mg Tab PO MWF Nitroglycerin (Nitroglycerin Lingual) 0.4 Mg/[place] Spr Ondansetron Hcl (Zofran) 4 Mg Tab 4 MG PO BID PRN for Nausea, TAB Pantoprazole (Protonix) 40 Mg Tab 40 MG PO DAILY, #30 TAB Rifaximin (Xifaxan) 550 Mg Tab 1 TAB PO BID for 14 Days, #28 TAB Sevelamer Carbonate (Renvela) 800 Mg Tab 2 TAB PO TID for 90 Days, #540 TAB 3 Refills Simvastatin (Simvastatin) 20 Mg Tab PO HS Vitamin B Cmplx/Vitc/Folic Ac (Nephrocaps) Cap 1 CAP PO DAILYBD for 30 Days, #30 CAP 11 Refills Discharge Exam Last 24 Hours Test 11/12/16 18:38 11/12/16 20:18 11/13/16 05:20 11/13/16 11:15 Bedside Glucose 110 mg/dl 145 mg/dl 122 mg/dl White Blood Count 4.30 K/uL Red Blood Count 3.32 M/uL Hemoglobin 10.4 g/dL Hematocrit 32.0 % Mean Corpuscular Volume 96.4 fL Mean Corpuscular Hemoglobin 31.3 pg Mean Corpuscular Hemoglobin Concent 32.5 g/dl Platelet Count 118 K/uL Mean Platelet Volume 11.9 fL Neutrophils (%) (Auto) 57.2 % Lymphocytes (%) (Auto) 26.5 % Monocytes (%) (Auto) 11.9 % Eosinophils (%) (Auto) 2.8 % Basophils (%) (Auto) 1.6 % Neutrophils # (Auto) 2.46 K/uL Lymphocytes # (Auto) 1.14 K/uL Monocytes # (Auto) 0.51 K/uL Eosinophils # (Auto) 0.12 K/uL Basophils # (Auto) 0.07 K/uL RDW Standard Deviation 53.1 fL RDW Coefficient of Variation 15.1 % Immature Granulocyte % (Auto) 0.0 % Immature Granulocyte # (Auto) 0.00 K/uL Sodium Level 140 mmol/L Potassium Level 3.5 mmol/L Chloride Level 101 mmol/L Carbon Dioxide Level 27 mmol/L Anion Gap 12.0 mmol/L Blood Urea Nitrogen 8 mg/dl Creatinine 2.40 mg/dl Est Creatinine Clear Calc Drug Dose 26.8 ml/min Estimated GFR () 23.4 Estimated GFR (Non- 20.2 BUN/Creatinine Ratio 3.5 Random Glucose 120 mg/dl Calcium Level 8.9 mg/dl Ammonia 42.0 umol/L Test 11/13/16 11:33 Bedside Glucose 128 mg/dl Review of Systems: Constitutional: No fever Respiratory: No shortness of breath Cardiovascular: No chest pain Abdomen: No pain Neurologic: No weakness Physical Exam: General Appearance: no apparent distress Respiratory/Chest: lungs clear, no respiratory distress Cardiovascular: regular rate, rhythm Abdomen / GI: normal bowel sounds, non tender, soft Neurologic/Psychiatric: alert, oriented x 3 Skin: warm/dry Hospital Course 66 yo female with hx of ESRD on dialysis, IDDM, diastolic CHF, GANDHI who presents with AMS and was unable to make her dialysis session which she gets T, TH.,Sa. Pt was a direct transfer from [facility] due to lack of dialysis services Hepatic encephalopathy sec to Hyperammonemia - Per records from [facility] - CT head benign, UA remarkable. CXR no acute infiltrates or effusions. No leukocytosis, fevers or sx of infection Ammonia level at 49 at [facility]. Ammonia level here in 90s and then upto 110. Given scheduled lactulose and rifaxin and mentation cleared with drop in ammonia levels. GANDHI cirrhosis - lactulose, rifaxin hx of Paroxysmal A fib - Episodes of a fib/flutter at the night of admission. Converted back to NSR. Cardiology consulted. Recommended - If she had any sustained atrial fibrillation with rapid ventricular response, would need to administer AV ly blocking medication - B natalya. CCB may cause low blood pressure. Patient absolutely refused AC due to h/o GI bleed. Hx of GI bleeding when on anticoagulation Postural hypotension - On midodrine ESRS on HD (T,Th,Sa) Missed dialysis session 11/11 - Received HD here. IDDM - Continued on lantus and ISS, HgA1C - 7.0 Hx of AVR in 2014 - stable. Echo with well functioning bioprosthetic valve. 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 Functioning properly. Total Time Spent: Greater than 30 minutes (40) This includes examination of the patient, discharge planning, medication reconciliation, and communication with other providers. Discharge Instructions Please refer to the electronic Patient Visit Report (Discharge Instructions) for additional information. Additional Copies To Connie Frost D.O.
[2016-12-15] MEDS ORDERED: CEPH-571 PO ×2 (14:41→16:58)
[2016-12-15] MEDS ORDERED: OSEL30CA PO (15:47)
[2016-12-15] MEDS ORDERED: CLOT1CRE3 PV (15:47)
[2017-03-13] MEDS ORDERED: PROB1TAB16 PO (08:40)
[2017-03-13] MEDS ORDERED: PROC1TAB5 PO (08:40)
[2017-03-13] MEDS ORDERED: LANT1000 PO (08:40)
[2017-03-13] MEDS ORDERED: NVLGI/PEN SC (08:40)
[2017-03-13] MEDS ORDERED: RIFA550T2 PO (08:40)
[2017-03-13] MEDS ORDERED: LACT10SO17 PO (08:44)
== END 2016-11-13 14:07 | disposition home or self-care (01) | DRG 441 ==
LOC: C.2T 19:38
PROVIDERS: ADMIT Hospitalist; ATTEND Family Medicine
DX: K72.90 Hepatic failure, unspecified without coma (principal); N18.6 End stage renal disease; G93.41 Metabolic encephalopathy; I50.30 Unspecified diastolic (congestive) heart failure; E72.20 Disorder of urea cycle metabolism, unspecified; I48.92 Unspecified atrial flutter; I45.2 Bifascicular block; N25.81 Secondary hyperparathyroidism of renal origin; I44.0 Atrioventricular block, first degree; I49.3 Ventricular premature depolarization; I48.0 Paroxysmal atrial fibrillation; D64.9 Anemia, unspecified; G90.8 Other disorders of autonomic nervous system; E11.22 Type 2 diabetes mellitus with diabetic chronic kidney disease; K75.81 Nonalcoholic steatohepatitis (NASH); I25.10 Atherosclerotic heart disease of native coronary artery without angina pectoris; I95.1 Orthostatic hypotension; E78.5 Hyperlipidemia, unspecified; Z87.19 Personal history of other diseases of the digestive system; Z99.2 Dependence on renal dialysis; Z95.3 Presence of xenogenic heart valve; Z95.0 Presence of cardiac pacemaker; Z95.1 Presence of aortocoronary bypass graft; Z79.4 Long term (current) use of insulin; Z79.890 Hormone replacement therapy; Z79.899 Other long term (current) drug therapy

== ENCOUNTER 2016-12-11 17:15 | Inpatient (IN) | payer OTHER, BC ==
[~2016-12-11] VITALS: Ht 157.5 cm; Wt 100.7 kg
[~2016-12-11 17:15] MED LIST: B-CO1CAP17 PO; ESTR0.5T3 PO; GABA-112 PO; INSDGIPEN SC; INSPMPNVLG; LACT10SO17; LORA-741 PO; NITR0.4S76; ONDA4TAB46 PO; PANT40TA PO; PRMT10 PO; RIFA550T2 PO; SEVE800T7 PO; ZCR20 PO; [UNRECOGNIZED DRUG - CODE] PO
[2016-12-11 19:30] VITALS: BP 118/50; PULSE 73; TEMP 36.8; Ht 157.5 cm; Wt 100.7 kg
[2016-12-11] MEDS ORDERED: ONDANSETRON INJ 2 MG/ML 2 ML VIAL IV PRN (19:45)
[2016-12-11] MEDS ORDERED: POLYETHYLENE (MIRALAX) 17 GM PACK NG PRN (19:45)
[2016-12-11] MEDS ORDERED: CEFTRIAXONE SOD INJ 500 MG in DEXTROSE 5% 50ML 50 ML IV SCH (19:45)
[2016-12-11] MEDS ORDERED: SEVELAMER HYDROCH 800 MG TAB PO SCH (20:00)
[2016-12-11 20:35] LABS: BASO % 0.5 %; BASO ABS # 0.03 K/uL (0-0.2); COMPLETE YES; EOS % 1.9 %; HEMATOCRIT 32.1 % (37-47); IG% 0.2 %; LYMPH % 16.7 %; LYMPH ABS # 0.95 K/uL (1.2-3.4); MEAN CELL VOLUME 94.1 fL (80-100); MEAN CORPUSCULAR HEMOGLOBIN 30.8 pg (25-34); MEAN CORPUSCULAR HGB CONC 32.7 g/dl (32-36); MEAN PLATELET VOLUME 11.7 fL (7.4-10.4); NEUT % 71.7 %; PLATELET COUNT 139 K/uL (130-400); RED BLOOD COUNT 3.41 M/uL (4.2-5.4); WHITE BLOOD COUNT 5.68 K/uL (4.8-10.8)
[2016-12-11 20:46] LABS: INR 1.1 (0.9-1.1); PROTHROMBIN TIME (PATIENT) 11.8 SECONDS (9.0-12.0)
[2016-12-11] MEDS ORDERED: ESTRADIOL PO SCH (21:00)
[2016-12-11] MEDS ORDERED: INSULIN GLARGINE SOLOSTAR 100 UNITS/ML 3 ML PEN SC SCH ×2 (21:00)
[2016-12-11 21:17] LABS: ALB/GLOB RATIO 0.8 (0.9-2); ALKALINE PHOSPHATASE 191 U/L (45-117); ALT/SGPT 11 U/L (12-78); AST/SGOT 16 U/L (15-37); BLOOD UREA NITROGEN 55 mg/dl (7-18); BUN/CREATININE RATIO 5.7 (10-20); CALCIUM 8.7 mg/dl (8.5-10.1); CARBON DIOXIDE 23 mmol/L (21-32); CHLORIDE 99 mmol/L (98-107); GLUCOSE 146 mg/dl (70-99); POTASSIUM 4.1 mmol/L (3.5-5.1); SODIUM 139 mmol/L (136-145)
[2016-12-11] MEDS: LACTULOSE SYRUP 10 GM/15 ML BTL 473 ML NG SCH (22:19)
[2016-12-11] MEDS: RIFAXIMIN TAB 550 MG TAB NG SCH (22:19)
[2016-12-11] MEDS: SEVELAMER HYDROCH 800 MG TAB PO SCH ×2 (22:19→22:52)
[2016-12-11] MEDS: SIMVASTATIN 20 MG TAB NG SCH (22:19)
[2016-12-11] MEDS: CEFTRIAXONE SOD INJ 1,000 MG in DEXTROSE 5% 50ML 50 ML IV SCH (22:20)
[2016-12-11] MEDS: ESTRADIOL 1 MG TAB NG SCH (22:20)
[2016-12-11] MEDS: INSULIN GLARGINE SOLOSTAR 100 UNITS/ML 3 ML PEN SC SCH (22:24)
[2016-12-11] MEDS: HEPARIN SOD 5000 UNIT/0.5 ML CARP SQ SCH (22:25)
[2016-12-11] MEDS: INSULIN ASPART 100 UNITS/ML 3 ML PEN SC SCH (22:25)
--- NOTE | 2016-12-11 22:30 | DIAGNOSTIC IMAGING REPORT ---
SINGLE VIEW CHEST CLINICAL HISTORY: CHF. FINDINGS: An AP, portable, upright chest radiograph is obtained. No prior studies are available for comparison at the time of dictation. The examination is degraded by portable technique, large body habitus, and patient rotation. An enteric tube projects below the diaphragm. A 2-lead cardiac pacemaker is in place. The patient is status post midline sternotomy. The heart is enlarged and there is atherosclerotic calcification of the thoracic aorta. There is pulmonary vascular congestion and mild interstitial edema. No large pleural effusion is identified. No pneumothorax is seen. The skeletal structures are osteopenic. The bony thorax is grossly intact. IMPRESSION: 1. Cardiomegaly and cardiac pacemaker. There is evidence of congestive failure with interstitial edema. 2. No large pleural effusion is identified. 3. An enteric tube projects below the diaphragm. Electronically signed by: Rito Carbajal M.D. 12/11/2016 10:29 PM Dictated Date/Time: 12/11/2016 10:28 PM
--- NOTE | 2016-12-11 22:32 | DIAGNOSTIC IMAGING REPORT ---
KUB CLINICAL HISTORY: Enteric tube placement. FINDINGS: An AP, portable, supine abdominal radiograph is obtained. No prior studies are available for comparison at the time of dictation. An enteric tube projects below the diaphragm over the mid stomach. There is no clear radiographic evidence of bowel obstruction. No evidence of intraperitoneal free air is seen on this supine view. Numerous small hyperdensities likely represent colonic contents. The skeletal structures are osteopenic. There is lumbosacral spondylosis. IMPRESSION: 1. An enteric tube projects below the diaphragm over the mid stomach. 2. There is no clear radiographic evidence of bowel obstruction. Electronically signed by: Rito Carabjal M.D. 12/11/2016 10:31 PM Dictated Date/Time: 12/11/2016 10:29 PM
[2016-12-11] MEDS: GABAPENTIN 250 MG/5 ML 470 ML BTL NG SCH (22:57)
[2016-12-11 23:27] VITALS: BP 165/77; PULSE 76; TEMP 36.6; O2SAT 95
[2016-12-12] VITALS (25 sets, daily range): BP systolic 85–130; BP diastolic 42–70; PULSE 59–91; TEMP 36.6–38.1; O2SAT 95–97
[2016-12-12 06:39] LABS: ESTIMATED AVERAGE GLUCOSE 160 mg/dl; HA1C FLAG Normal (Normal)
--- NOTE | 2016-12-12 07:04 | HISTORY & PHYSICAL EXAMINATION ---
DATE OF ADMISSION: 12/11/2016 CHIEF COMPLAINT: Hepatic encephalopathy, UTI. HISTORY OF PRESENT ILLNESS: This is a 66-year-old female with history of end-stage renal disease, on hemodialysis on Thursday, and Thursday; type 2 diabetes, on insulin; diastolic CHF; GANDHI; presents to [facility] as a transfer from [facility] due to acute change of mental status. According to [facility], the patient was unable to make her dialysis session and she was directly transferred due to lack of dialysis services here. Unfortunately, the patient unable to provide any history. She is alert, oriented x0, and response to any question is with word "what." It seems like the patient had similar admission in the ER on 11/11/2016 to our services and she was treated for hepatic encephalopathy with hyperammonemia at that time. She was also treated at that time for paroxysmal Afib with episodes of atrial fibrillation and flutter at night during last admission. She converted back to normal sinus rhythm. Cardiology was consulted at that time and recommended if she had any sustained atrial fibrillation with rapid ventricular response, would need to administer AV ly blocking medications such as beta natalya. Calcium channel blockers may cause low blood pressure. The patient in the past absolutely refused any anticoagulation due to history of GI bleed. According to records from [facility], she was seen today for change of mental status and was transferred due to not available dialysis services and also per patient and family's request. They suspected that the patient had an infection in her urine and gave her a dose of intramuscular ceftriaxone. They also checked her CT scan of the head without contrast that showed negative for acute intracranial process, stable appearance of the small left frontal meningioma, no significant change compared to 11/11/2016. Chest x-ray showed increasing CHF, fluid overload, early interstitial edema as compared to the study of 11/11/2016. She did receive 1 dose of 20 grams of lactulose at [facility]. Her labs were checked there. INR was 1.0. Prothrombin time 10.8. Her BMP showed glucose of 231, BUN of 49, creatinine 9.0, sodium 135, potassium 4.8, chloride 95, total CO2 of 26, calcium of 9.0. AST of 19, ALT of 13, alkaline phosphatase of 217, total bilirubin 0.6, albumin of 3.2, myoglobin of 146, anion gap of 19, ammonia of 242. Troponin of 0.04. CBC was done there, showed white blood cell count of 5.6, hematocrit of 33.2, platelets of 114. Blood gas was done, pH of 7.4, CO2 of 40, O2 of 82, bicarbonate of 24, CO2 of 25. Urinalysis showed 1+ protein, trace ketones, large amount of leukocyte esterase, 10-14 red blood cells, epithelial cells, renal epithelial cells and 4+ bacteria. REVIEW OF SYSTEMS: Could not be obtained due to the patient's lethargy. ALLERGIES: THE PATIENT HAS ALLERGIES TO IODINATED DIAGNOSTIC AGENTS, LEVOFLOXACIN, LOSARTAN, PHENOBARBITAL. SOCIAL HISTORY: Unknown if ever smoked. FAMILY HISTORY: Could not be obtained. MEDICATIONS: Estradiol 0.5 mg at bedtime daily p.o., gabapentin 200 mg p.o. at bedtime, insulin aspart 7 units before meals, insulin glargine 25 units subcutaneously at bedtime, lactulose 30 mL b.i.d., Fosrenol 1000 powder p.o. t.i.d., lorazepam 0.5 mg p.o. p.r.n. anxiety and agitation, midodrine 10 mg Thursday, Thursday, Thursday, nitroglycerin sublingual 0.4 mg spray, ondansetron 4 mg p.o. b.i.d. p.r.n., pantoprazole 40 mg p.o. daily, rifaximin 1 tablet p.o. b.i.d. 550 mg, Sevelamer 2 tablets p.o. t.i.d. 800 mg, simvastatin 20 mg p.o. at bedtime, vitamin B complex 1 capsule p.o. daily. PAST MEDICAL HISTORY: Significant for end-stage renal disease, on hemodialysis Thursday, and Thursday; type 2 diabetes, on insulin; diastolic CHF; GANDHI; change of mental status; hepatic encephalopathy; hyperammonemia; GANDHI cirrhosis; paroxysmal Afib; history of GI bleed; postural hypotension; history of AVR in 2014, stable; status post dual-chamber pacemaker, complete heart block; liver biopsy in June. 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 PHYSICAL EXAMINATION: VITAL SIGNS: Temperature 36.8, pulse 73, respirations 16, blood pressure 118/50. She is on room air. GENERAL: Not in acute distress, lethargic, oriented x0. HEENT: Normocephalic, atraumatic. PERRLA, EOMI. Mouth moist, no lesions. NECK: No JVD. Trachea midline. Thyroid is not enlarged. LUNGS: There are some crackles at the bases. HEART: S1, S2. RRR. ABDOMEN: Soft, nontender, nondistended. Bowel sounds present bilateral. EXTREMITIES: No clubbing or cyanosis. There is 1+ edema present with some dry skin present. NEUROLOGIC: Alert, oriented x0. Cranial nerves II-XII are intact. Motor and sensory normal. Deep tendon reflexes 2+ bilateral. SKIN: No rash. No jaundice. LABORATORY DATA: All pending. Labs from [facility], please see HPI. ASSESSMENT AND PLAN: This is a 66-year-old female with history of end-stage renal disease, on dialysis; type 2 diabetes; diastolic congestive heart failure; non-alcoholic steatohepatitis; presents with change of mental status, who was unable to make her dialysis session for Thursday, and Thursday. She came here as a direct transfer from [place] due to lack of dialysis services. 1. Hepatic encephalopathy secondary to hyperammonemia. Reported ammonia level at [facility] is 242. Seems like [facility] inserted NG tube and gave her a dose of lactulose. She had a CT scan of her head done, that was benign. Urinalysis showed suspicion for UTI. Chest x-ray showed developing CHF. We will start the patient on lactulose 45 grams t.i.d. with rifaximin via NG tube and watch her mentation. We will repeat ammonia levels in the morning. 2. End-stage renal disease, on hemodialysis Thursday, , Thursday, missed dialysis session. We will consult nephrology to restart dialysis. We will continue with phosphate binders as an outpatient. 3. Non-alcoholic steatohepatitis cirrhosis. We will continue lactulose and rifaximin. 4. History of paroxysmal atrial fibrillation, currently normal sinus rhythm. We will continue on telemetry, monitoring her heart rate. 5. Suspected urinary tract infection. We will continue ceftriaxone 1000 mg IV daily. 6. Type 2 diabetes. The patient was taking 25 units of glargine at bedtime and insulin NovoLog. We will decrease insulin glargine to 12 units subcutaneously at bedtime due to the patient being n.p.o. and we will continue with sliding scale with correctional factor of 30 and carb ratio of 10. 7. History of gastrointestinal bleeding. The patient absolutely refuses anticoagulation due to previous history of paroxysmal atrial fibrillation. The patient refused anticoagulation when she had paroxysmal atrial fibrillation during last admission. 8. Postural hypotension, on midodrine. 9. History of aortic valve replacement in 2014, stable. Echo during November admission showed well-functioning bioprosthetic valve status post dual-chamber pacemaker, likely had complete heart block following her aortic valve surgery in 2014, functioning properly. 10. History of hyperlipidemia. Continue Zocor 20 mg daily. 11. Deep venous thrombosis prophylaxis is heparin subcu. 12. The patient is a full code as per her daughter. Time spent during this admission 50 minutes. MTDD
[2016-12-12] MEDS: INSULIN ASPART 100 UNITS/ML 3 ML PEN SC SCH ×4 (08:07→21:04)
[2016-12-12] MEDS: SEVELAMER HYDROCH 800 MG TAB PO SCH ×3 (08:08→17:24)
[2016-12-12] MEDS: LACTULOSE SYRUP 10 GM/15 ML BTL 473 ML NG SCH ×3 (08:10→21:00)
[2016-12-12] MEDS: MIDODRINE 10 MG TAB NG SCH ×2 (08:10→20:54)
[2016-12-12] MEDS: RIFAXIMIN TAB 550 MG TAB NG SCH ×2 (08:10→20:57)
[2016-12-12] MEDS ORDERED: HEPARIN SOD (PORCINE) 1000 UNIT/ML 10 ML VIAL IV SCH ×2 (08:15)
[2016-12-12] MEDS: HEPARIN SOD 5000 UNIT/0.5 ML CARP SQ SCH ×2 (08:26→21:05)
--- NOTE | 2016-12-12 09:36 | Nephrology Consultation ---
Nephrology Consultation Date & Providers Date of Consultation: Dec 12, 2016. Primary Care Provider: Connie Frost D.O. Referring Provider: Reason for Consultation ESRD on HD History of Present Illness Yolande Is a 66-year-old female with hypertension, diabetes mellitus, GANDHI cirrhosis, diastolic CHF, end-stage renal disease on hemodialysis who presented to [facility] yesterday with acute mental status changes. Presentation consistent with prior episodes of hepatic encephalopathy - similar to prior admission. Yolande held her lactulose yesterday AM prior to her 10:30 AM dialysis treatment. She did not make it to dialysis yesterday. She was admitted with acute encephalopathy. Following lactulose via NGT overnight, mental status has significantly improved this morning. Consultation was requested to provide hemodialysis while inpatient. Electronic medical records including labs and imaging are reviewed in detail this morning. Yolande has end-stage renal disease and has been on dialysis since December 2014 via a right brachiocephalic AV fistula. She dialysis on Thursday, , Thursday at [facility] dialysis unit. She was started on dialysis for acute kidney injury after CABG and kidney function eventually did not recover. Currently her BP, volume status and electrolytes acceptable. Her BP usually runs low and get midodrine before dialysis. I spoke with nursing staff at the dialysis unit this morning. Dialysis has been without recent complications. They did report some prolonged bleeding post HD. Past Medical/Surgical History Medical: ESRD on HD TTS DM II Hypertension Diastolic CHF GANDHI cirrhosis Hepatic encephalopathy PAfib History of GI bleed Surgical: AVR in 2014, dual-chamber pacemaker, complete heart block; liver biopsy in June. AVF placement. Allergies Coded Allergies: Levofloxacin (Verified Allergy, Mild, rash/redness at IV site, 11/11/16) Iodinated Diagnostic Agents (Verified Allergy, Unknown, unknown, 11/11/16) Losartan (Verified Allergy, Unknown, rash, 11/11/16) Phenobarbital (Verified Allergy, Unknown, difficulty breathing, 11/11/16) Inpatient Medications Current Inpatient Medications Medications (Trade) Dose Ordered Sig/Ronn Route Start Time Stop Time Status Last Admin Dose Admin Gabapentin (Neurontin) 200 mg HS NG 12/11/16 21:00 01/10/17 20:59 12/11/16 22:57 200 MG Lactulose (Chronulac Syrup) 45 gm TID NG 12/11/16 21:00 01/10/17 20:59 12/12/16 08:10 45 GM Midodrine (Proamatine Tab) 20 mg DAILY NG 12/12/16 09:00 01/11/17 08:59 12/12/16 08:10 20 MG Rifaximin (Xifaxan Tab) 550 mg BID NG 12/11/16 21:00 01/10/17 20:59 12/12/16 08:10 550 MG Simvastatin (Zocor Tab) 20 mg HS NG 12/11/16 21:00 01/10/17 20:59 12/11/16 22:19 20 MG Vitamin B Complex/ Vit C/Folic Acid (Nephrocaps) 1 cap DAILYBD PO 12/12/16 16:15 01/11/17 16:14 Future Hold Insulin Aspart SLIDING SCALE G... ACHS SC 12/11/16 21:00 01/10/17 20:59 Pantoprazole Sodium/Syringe (Protonix Inj/ Syringe) 10 ml @ 5 mls/min DAILY@11 IV 12/12/16 11:00 01/11/17 10:59 Estradiol (Estrace Tab) 0.5 mg HS NG 12/11/16 21:00 01/10/17 20:59 12/11/16 22:20 0.5 MG Heparin Sodium (Porcine) (Heparin Sq 5000 Unit/0.5ml) 5,000 unit Q12 SQ 12/11/16 21:00 01/10/17 20:59 12/12/16 08:26 5,000 UNIT Ondansetron HCl (Zofran Inj) 4 mg Q6H PRN IV 12/11/16 19:45 01/10/17 19:44 Polyethylene 17 gm 17 gm DAILY PRN NG 12/11/16 19:45 01/10/17 19:44 Ceftriaxone Sodium/Dextrose (Rocephin Inj/D5 50ml) 60 ml @ 100 mls/hr Q24H IV 12/11/16 21:00 12/21/16 20:59 12/11/16 22:20 100 MLS/HR Insulin Glargine (Lantus Solostar Pen) 12 unit HS SC 12/11/16 21:00 01/10/17 20:59 12/11/16 22:24 12 UNIT Sevelamer HCl (Renagel Tab) 1,600 mg TIDM PO 12/11/16 20:00 01/10/17 19:59 Heparin Sodium (Porcine) (Heparin Iv Bolus) 1,000 unit TODAY@0815 IV 12/12/16 08:15 12/12/16 18:00 Heparin Sodium (Porcine) (Heparin Iv Bolus) 1,000 unit Q1H IV 12/12/16 08:15 12/12/16 10:16 Social History Smoking Status: Unknown if Ever Smoked Review of Systems A complete review of systems was performed. Pertinent positives are noted above. All other systems are negative. Physical Exam Date Time Temp Pulse Resp B/P Pulse Ox O2 Delivery O2 Flow Rate FiO2 12/12/16 08:06 36.6 89 16 100/56 95 12/12/16 04:05 36.7 80 22 130/49 95 12/12/16 04:00 95 Room Air 12/12/16 00:00 95 Room Air 12/12/16 00:00 95 Room Air 12/11/16 23:27 36.6 76 20 165/77 95 Room Air 12/11/16 19:30 36.8 73 16 118/50 Room Air General Appearance: WD/WN, no apparent distress Head: normocephalic, atraumatic Eyes: normal inspection, sclerae normal ENT: normal ENT inspection, pharynx normal, + pertinent finding (NGT) Neck: supple, no JVD Respiratory/Chest: lungs clear, no respiratory distress, no accessory muscle use Cardiovascular: regular rate, rhythm, + systolic murmur Abdomen/GI: non tender, soft Extremities/Musculoskelatal: normal inspection, no pedal edema Neurologic/Psych: alert, normal mood/affect Skin: normal color Laboratory Results Last 24 Hours Test 12/11/16 19:34 12/11/16 19:37 12/11/16 19:52 12/11/16 19:56 Creatine Kinase MB Ratio Bedside Glucose 147 mg/dl Test 12/11/16 20:20 12/11/16 23:45 12/12/16 03:52 12/12/16 03:58 White Blood Count 5.68 K/uL Red Blood Count 3.41 M/uL Hemoglobin 10.5 g/dL Hematocrit 32.1 % Mean Corpuscular Volume 94.1 fL Mean Corpuscular Hemoglobin 30.8 pg Mean Corpuscular Hemoglobin Concent 32.7 g/dl Platelet Count 139 K/uL Mean Platelet Volume 11.7 fL Neutrophils (%) (Auto) 71.7 % Lymphocytes (%) (Auto) 16.7 % Monocytes (%) (Auto) 9.0 % Eosinophils (%) (Auto) 1.9 % Basophils (%) (Auto) 0.5 % Neutrophils # (Auto) 4.07 K/uL Lymphocytes # (Auto) 0.95 K/uL Monocytes # (Auto) 0.51 K/uL Eosinophils # (Auto) 0.11 K/uL Basophils # (Auto) 0.03 K/uL RDW Standard Deviation 49.8 fL RDW Coefficient of Variation 14.6 % Immature Granulocyte % (Auto) 0.2 % Immature Granulocyte # (Auto) 0.01 K/uL Prothrombin Time 11.8 SECONDS Prothromb Time International Ratio 1.1 Activated Partial Thromboplast Time 27.1 SECONDS Partial Thromboplastin Ratio 1.0 Sodium Level 139 mmol/L Potassium Level 4.1 mmol/L Chloride Level 99 mmol/L Carbon Dioxide Level 23 mmol/L Anion Gap 17.0 mmol/L Blood Urea Nitrogen 55 mg/dl Creatinine 9.70 mg/dl Est Creatinine Clear Calc Drug Dose 6.5 ml/min Estimated GFR () 4.3 Estimated GFR (Non- 3.7 BUN/Creatinine Ratio 5.7 Random Glucose 146 mg/dl Estimated Average Glucose 160 mg/dl Hemoglobin A1c 7.2 % Lactic Acid Level 2.6 mmol/L 2.9 mmol/L Calcium Level 8.7 mg/dl Total Bilirubin 0.7 mg/dl Aspartate Amino Transf (AST/SGOT) 16 U/L Alanine Aminotransferase (ALT/SGPT) 11 U/L Alkaline Phosphatase 191 U/L Ammonia 67.0 umol/L Creatine Kinase MB 0.9 ng/ml 0.9 ng/ml Troponin I 0.050 ng/ml 0.051 ng/ml Total Protein 6.5 gm/dl Albumin 2.9 gm/dl Globulin 3.6 gm/dl Albumin/Globulin Ratio 0.8 Creatine Kinase MB Ratio Test 12/12/16 07:11 12/12/16 08:00 Bedside Glucose 97 mg/dl Impression (1) End stage renal disease on dialysis (2) Anemia (3) Autonomic dysfunction (4) Metabolic encephalopathy (5) Secondary hyperparathyroidism of renal origin Yolande is a 66 year-old female with HTN, CAD, DM, GANDHI cirrhosis and ESRD admitted with hepatic encephalopathy. She dialyzes TTS at [place]. Treatments are 4 hours with Qb 500. EDW of 106.5 kg. 2K bath. No complications with dialysis. Midodrine prior to treatment for dialytic hypotension. Recent prolonged bleeding noted. Mental status improving this AM with lactulose treatments. Recommendations -- HD today. Orders placed in chart for 4 hrs, Qb 400. -- Medications appropriate for renal function -- Sevelamer QAC -- Epogen with HD for anemia
--- NOTE | 2016-12-12 09:46 | Progress Note ---
Subjective Date of Service: Dec 12, 2016. Subjective this pt is now awake and able to speak and eat, does not clear reason why she did not go to dialysis other than feeling ill Review of Systems Constitutional: + fatigue, + weakness, No chills, No fever Respiratory: No cough, No shortness of breath Cardiac: No chest pain, No edema Abdomen: No nausea, No pain, No vomiting Female : No dysuria, No urinary frequency Objective Vital Signs Date Time Temp Pulse Resp B/P Pulse Ox O2 Delivery O2 Flow Rate FiO2 12/12/16 08:06 36.6 89 16 100/56 95 12/12/16 04:05 36.7 80 22 130/49 95 12/12/16 04:00 95 Room Air 12/12/16 00:00 95 Room Air 12/12/16 00:00 95 Room Air 12/11/16 23:27 36.6 76 20 165/77 95 Room Air 12/11/16 19:30 36.8 73 16 118/50 Room Air Physical Exam General Appearance: WD/WN, + mild distress Eyes: PERRL, EOMI Respiratory/Chest: chest non-tender, + decreased breath sounds, + accessory muscle use Cardiovascular: regular rate, rhythm, no murmur Abdomen: normal bowel sounds, non tender, soft Extremities: no calf tenderness, + pedal edema, + swelling Neurologic/Psychiatric: alert Laboratory Results Last 24 Hours Test 12/11/16 19:34 12/11/16 19:37 12/11/16 19:52 12/11/16 19:56 Creatine Kinase MB Ratio Bedside Glucose 147 mg/dl Test 12/11/16 20:20 12/11/16 23:45 12/12/16 03:52 12/12/16 03:58 White Blood Count 5.68 K/uL Red Blood Count 3.41 M/uL Hemoglobin 10.5 g/dL Hematocrit 32.1 % Mean Corpuscular Volume 94.1 fL Mean Corpuscular Hemoglobin 30.8 pg Mean Corpuscular Hemoglobin Concent 32.7 g/dl Platelet Count 139 K/uL Mean Platelet Volume 11.7 fL Neutrophils (%) (Auto) 71.7 % Lymphocytes (%) (Auto) 16.7 % Monocytes (%) (Auto) 9.0 % Eosinophils (%) (Auto) 1.9 % Basophils (%) (Auto) 0.5 % Neutrophils # (Auto) 4.07 K/uL Lymphocytes # (Auto) 0.95 K/uL Monocytes # (Auto) 0.51 K/uL Eosinophils # (Auto) 0.11 K/uL Basophils # (Auto) 0.03 K/uL RDW Standard Deviation 49.8 fL RDW Coefficient of Variation 14.6 % Immature Granulocyte % (Auto) 0.2 % Immature Granulocyte # (Auto) 0.01 K/uL Prothrombin Time 11.8 SECONDS Prothromb Time International Ratio 1.1 Activated Partial Thromboplast Time 27.1 SECONDS Partial Thromboplastin Ratio 1.0 Sodium Level 139 mmol/L Potassium Level 4.1 mmol/L Chloride Level 99 mmol/L Carbon Dioxide Level 23 mmol/L Anion Gap 17.0 mmol/L Blood Urea Nitrogen 55 mg/dl Creatinine 9.70 mg/dl Est Creatinine Clear Calc Drug Dose 6.5 ml/min Estimated GFR () 4.3 Estimated GFR (Non- 3.7 BUN/Creatinine Ratio 5.7 Random Glucose 146 mg/dl Estimated Average Glucose 160 mg/dl Hemoglobin A1c 7.2 % Lactic Acid Level 2.6 mmol/L 2.9 mmol/L Calcium Level 8.7 mg/dl Total Bilirubin 0.7 mg/dl Aspartate Amino Transf (AST/SGOT) 16 U/L Alanine Aminotransferase (ALT/SGPT) 11 U/L Alkaline Phosphatase 191 U/L Ammonia 67.0 umol/L Creatine Kinase MB 0.9 ng/ml 0.9 ng/ml Troponin I 0.050 ng/ml 0.051 ng/ml Total Protein 6.5 gm/dl Albumin 2.9 gm/dl Globulin 3.6 gm/dl Albumin/Globulin Ratio 0.8 Creatine Kinase MB Ratio Test 12/12/16 07:11 12/12/16 08:00 Bedside Glucose 97 mg/dl Assessment and Plan 66-F with toxic encephalopathy from missing Dailysis session Thursday, and Thursday. She came here as a direct transfer from [place] due to lack of dialysis services. Non-alcoholic steatohepatitis cirrhosis and subsquent Hepatic encephalopathy improved with lactulose 45 grams t.i.d. with rifaximin via NG tube, remove ngt 12/12 due to improved mentation. End-stage renal disease, restart dialysis, continue with phosphate binders Paroxysmal atrial fibrillation, currently normal sinus rhythm. Bioprosthetic Aortic valve replacement 2014, refuses anticoagulation due to previous GI bleed Suspected urinary tract infection.poa, ceftriaxone 1000 mg await cultures IV daily. Type 2 diabetes. reduced basal dose due to questionable po intake, continue ssi Postural hypotension, on midodrine. Deep venous thrombosis prophylaxis is heparin subcu. full code
[2016-12-12] MEDS ORDERED: EPOETIN ALFA 4000 UNITS/ML VIAL IV SCH (10:00)
[2016-12-12] MEDS: PANTOprazole INJ 40 MG in SYRINGE 0 ML IV SCH (11:33)
--- NOTE | 2016-12-12 14:44 | GASTROINTESTINAL CONSULTATION ---
DATE OF CONSULTATION: 12/12/2016 DATE OF CONSULTATION: 12/12/2016. REQUESTING PHYSICIAN: Andrew Graham M.D. CHIEF COMPLAINT: History of GANDHI cirrhosis, hepatic encephalopathy. HISTORY OF PRESENT ILLNESS: This is a 66-year-old white female who presented to [facility] for change in mental status. The patient has end-stage renal disease with type 2 diabetes, diastolic congestive heart failure, GANDHI and was transferred from [facility] due to acute changes. The patient apparently was unable to perform her dialysis for a week and did not take her medication because she was feeling poorly. However, on today's history taking, the patient stated she was sick but could not specify her symptoms. At the present time she is awake and alert. During this hospitalization, the patient was found to have an elevated ammonia level and had been treated at [place] with NG tube and lactulose instillation. UA had suggested a urinary tract infection with a chest x-ray suggesting congestive heart failure. At the present time, the patient is eating lunch without difficulty. The patient reports a history of diabetes, although information that the patient can provide is limited regarding her past medical and surgical histories. She did report a hysterectomy and prior to that 2 C-sections but does not recall any gastrointestinal surgeries. She believes she had blood transfusions and seems to describe that she may have had GI bleeding at some point that required visualization with a "camera". She takes dialysis on Tuesdays, and Saturdays. SOCIAL HISTORY: The patient denies tobacco usage or alcohol usage. She was and has children. FAMILY HISTORY: She does not recall any specific family history for disorders of the liver, although her recall seems to be limited. PAST MEDICAL HISTORY: Significant for end stage renal disease, GANDHI, congestive heart, aortic valve replacement in 2014, history of GI bleed, paroxysmal Afib. The patient also status post dual chamber pacemaker for complete heart block and liver biopsy in June 2016, although the details of this are not currently available. There is also hyperlipidemia. ALLERGIES: The patient has allergies to iodine, levofloxacin, losartan and phenobarbital. CURRENT MEDICATIONS: Include estradiol, gabapentin, insulin glargine, lactulose, Fosrenol, p.r.n. nitroglycerin spray, pantoprazole and rifaximin 1 tablet twice daily. She also is on simvastatin, vitamin B complex. REVIEW OF SYSTEMS: Otherwise noncontributory based on 14-point exam. The patient denied any recent gastrointestinal bleeding or evidence of known ascites or paracentesis by her recollection. The patient does not report any hematemesis. She denies dysuria or hematuria. PHYSICAL EXAMINATION: GENERAL: Today shows a well-developed female in no acute distress. She is resting comfortably in bed sitting up and eating her lunch. The patient is awake and alert and appears to be reasonably oriented, although at the present time she believes she lives in [facility], and would answered 2017 for the month repeatedly. Eventually she was redirected and identified the month as initially November and the December. HEAD, EYES, EARS, NOSE, AND THROAT: The oral mucosa is slightly parched. The sclerae are anicteric. The conjunctivae are moist. HEART: Normal S1, S2. LUNGS: Clear to auscultation without rales or rhonchi. There are diminished breath sounds. ABDOMEN: Soft, nontender, nondistended, obese without rebound or guarding. I do not appreciate hepatosplenomegaly. There are normal bowel sounds. There is no evidence of ascites or shifting dullness. EXTREMITIES: Showed trace edema bilaterally. RECTAL EXAMINATION: Deferred at this time. LABORATORY DATA: Laboratory studies include on admission white count 5.6 with an H\\T\\H of 10.5 and 32.1, platelets 139,000. Coagulation INR is 1.1 PTT 27.1. Urinalysis is pending. Electrolytes on admission showed a lactate level of 2.6 and 2.9 on December 11. Her ammonia level was 67, hemoglobin A1c of 7.2. Imaging studies showed KUB that showed enteric tube in the diagram in the mid stomach with no evidence of bowel obstruction. Chest x-ray showed evidence of cardiomegaly with a cardiac pacemaker. There is no large pleural effusion. Blood culture showed no growth to date from admission cultures. Urine culture is pending. IMPRESSION AND PLAN: Mrs. Sandhu is new to the area from [facility] for which she was transferred for encephalopathy and worsening mental status. She by reports seems to be improved for level of alertness and cognition, although she is not completely lucid at this time. Rifaximin and lactulose continue. The patient is on additional medications including epo, pantoprazole, heparin for dialysis port. She is currently on lactulose 45 grams 3 times daily along with rifaximin 550 mg twice daily, Zocor and Rocephin along with her insulin products. At the present time, although she is mildly anemic, there is no report or description of acute GI bleeding by way of hematemesis, coffee-ground emesis, or melena. There was a prior history of this although details are not clear. It would be helpful to obtain any records from her local automobile mechanic [employer] regarding her liver workup, liver biopsy result, prior imaging studies and endoscopic procedures and therapies performed. This likely reflects GANDHI given her comorbidities of diabetes, cardiomegaly, obesity and Lipitor abnormalities. However, other sources should be excluded including viral autoimmune conditions if not already excluded by her local automobile mechanic [employer]. Once the acute changes are completed, upper endoscopy for staging would be reasonable along with some other imaging studies to look at the liver for evidence of hematoma. The source of the patient's confusion is multifactorial and may include recent illness, urinary tract infection. Would continue the current dose of lactulose and rifaximin. Further recommendations to follow. Would titrate lactulose to a stool pattern such that the 3 pasty bowel movements are achieved and titrate Lactulose as needed. At some point as an outpatient, if the patient has family who wish to provide GI care here we can make arrangement for her to be followed in the GI clinic. We will follow with you. If you have any questions regarding this evaluation, please do not hesitate to contact us. Thank you for allowing me to participate in this pleasant lady's care. HENNY
[2016-12-12] MEDS ORDERED: NEPHROCAPS PO SCH (16:15)
[2016-12-12] MEDS: ESTRADIOL 1 MG TAB NG SCH (20:56)
[2016-12-12] MEDS: SIMVASTATIN 20 MG TAB NG SCH (20:57)
[2016-12-12] MEDS: GABAPENTIN 250 MG/5 ML 470 ML BTL NG SCH (21:03)
[2016-12-12] MEDS: INSULIN GLARGINE SOLOSTAR 100 UNITS/ML 3 ML PEN SC SCH (21:05)
[2016-12-12 21:14] LABS: BASO % 0.7 %; BASO ABS # 0.06 K/uL (0-0.2); COMPLETE YES; EOS % 1.7 %; HEMATOCRIT 31.4 % (37-47); IG% 0.1 %; LYMPH % 12.8 %; LYMPH ABS # 1.08 K/uL (1.2-3.4); MEAN CELL VOLUME 94.9 fL (80-100); MEAN CORPUSCULAR HEMOGLOBIN 31.1 pg (25-34); MEAN CORPUSCULAR HGB CONC 32.8 g/dl (32-36); MEAN PLATELET VOLUME 11.4 fL (7.4-10.4); MONO % 7.8 %; NEUT % 76.9 %; PLATELET COUNT 140 K/uL (130-400); RED BLOOD COUNT 3.31 M/uL (4.2-5.4); WHITE BLOOD COUNT 8.43 K/uL (4.8-10.8)
[2016-12-12 22:14] LABS: BUN/CREATININE RATIO 5.8 (10-20); CALCIUM 8.5 mg/dl (8.5-10.1); POTASSIUM 4.2 mmol/L (3.5-5.1)
[2016-12-13] VITALS (11 sets, daily range): BP systolic 98–123; BP diastolic 45–64; PULSE 60–80; TEMP 36.7–37.5; O2SAT 94
[2016-12-13] MEDS: CEFTRIAXONE SOD INJ 1,000 MG in DEXTROSE 5% 50ML 50 ML IV SCH ×2 (02:14→21:39)
[2016-12-13] MEDS: SEVELAMER HYDROCH 800 MG TAB PO SCH ×3 (08:05→17:41)
[2016-12-13] MEDS: RIFAXIMIN TAB 550 MG TAB NG SCH ×2 (08:05→20:38)
[2016-12-13] MEDS: LACTULOSE SYRUP 10 GM/15 ML BTL 473 ML NG SCH ×3 (08:06→20:38)
[2016-12-13] MEDS: INSULIN ASPART 100 UNITS/ML 3 ML PEN SC SCH ×4 (08:08→20:41)
[2016-12-13] MEDS: HEPARIN SOD 5000 UNIT/0.5 ML CARP SQ SCH ×2 (08:08→20:48)
[2016-12-13] MEDS: MIDODRINE 10 MG TAB NG SCH (08:49)
[2016-12-13 09:07] LABS: BASO % 0.8 %; BASO ABS # 0.06 K/uL (0-0.2); COMPLETE YES; EOS % 2.3 %; HEMATOCRIT 33.3 % (37-47); IG% 0.3 %; LYMPH % 16.8 %; LYMPH ABS # 1.26 K/uL (1.2-3.4); MEAN CELL VOLUME 95.4 fL (80-100); MEAN CORPUSCULAR HEMOGLOBIN 30.4 pg (25-34); MEAN CORPUSCULAR HGB CONC 31.8 g/dl (32-36); MEAN PLATELET VOLUME 11.4 fL (7.4-10.4); MONO % 8.9 %; NEUT % 70.9 %; PLATELET COUNT 143 K/uL (130-400); RED BLOOD COUNT 3.49 M/uL (4.2-5.4); WHITE BLOOD COUNT 7.52 K/uL (4.8-10.8)
--- NOTE | 2016-12-13 09:39 | Nephrology Progress Note ---
Nephrology Progress Note Date of Service Dec 13, 2016. Chief Complaint ESRD on HD Subjective No acute events overnight. Tolerated HD yesterday without complications. UF - 2.5 kg. Appetite fair. States that she can still feel some of the effects of HE such as word finding difficulty and slight tremor. Overall, improving. No fevers or chills. No abdominal pain. No diarrhea or melena. Review of Systems A complete review of systems was performed. Pertinent positives are noted above. All other systems are negative. Vital Signs Last 8 Hrs Date Time Temp Pulse Resp B/P Pulse Ox O2 Delivery O2 Flow Rate FiO2 12/13/16 08:03 37.3 64 18 98/53 94 Room Air 12/13/16 04:00 94 Room Air 12/13/16 03:28 36.7 65 20 101/45 94 Room Air 12/13/16 01:48 37.4 70 105/64 I & O 24-Hour Column 12/13/16 07:59 Intake Total 750 ml Output Total 2500 ml Balance -1750 ml Last Recorded Weight Weight (Kilograms): 106.100 Physical Exam General Appearance: WD/WN, no apparent distress Head: normocephalic, atraumatic Eyes: normal inspection, sclerae normal ENT: normal ENT inspection, pharynx normal, + pertinent finding (oral mucosa slightly dry) Neck: supple, no JVD Respiratory/Chest: lungs clear, no respiratory distress, no accessory muscle use Cardiovascular: regular rate, rhythm, no gallop, + systolic murmur Abdomen/GI: non tender, soft Extremities/Musculoskelatal: normal inspection, no pedal edema Neurologic/Psych: alert, oriented x 3, + pertinent finding (slow to respond) Laboratory Results Past 24 Hours 12/12/16 20:59 Red Blood Count 3.31, Mean Corpuscular Volume 94.9, Mean Corpuscular Hemoglobin 31.1, Mean Corpuscular Hemoglobin Concent 32.8, Mean Platelet Volume 11.4, Neutrophils (%) (Auto) 76.9, Lymphocytes (%) (Auto) 12.8, Monocytes (%) (Auto) 7.8, Eosinophils (%) (Auto) 1.7, Basophils (%) (Auto) 0.7, Neutrophils # (Auto) 6.48, Lymphocytes # (Auto) 1.08, Monocytes # (Auto) 0.66, Eosinophils # (Auto) 0.14, Basophils # (Auto) 0.06 12/13/16 08:58 Red Blood Count 3.49, Mean Corpuscular Volume 95.4, Mean Corpuscular Hemoglobin 30.4, Mean Corpuscular Hemoglobin Concent 31.8, Mean Platelet Volume 11.4, Neutrophils (%) (Auto) 70.9, Lymphocytes (%) (Auto) 16.8, Monocytes (%) (Auto) 8.9, Eosinophils (%) (Auto) 2.3, Basophils (%) (Auto) 0.8, Neutrophils # (Auto) 5.34, Lymphocytes # (Auto) 1.26, Monocytes # (Auto) 0.67, Eosinophils # (Auto) 0.17, Basophils # (Auto) 0.06 12/12/16 20:59 Test 12/12/16 11:10 12/12/16 16:23 12/12/16 20:59 12/12/16 21:02 Bedside Glucose 115 mg/dl (70-90) 169 mg/dl (70-90) 214 mg/dl (70-90) White Blood Count 8.43 K/uL (4.8-10.8) Red Blood Count 3.31 M/uL (4.2-5.4) Hemoglobin 10.3 g/dL (12.0-16.0) Hematocrit 31.4 % (37-47) Mean Corpuscular Volume 94.9 fL (80-100) Mean Corpuscular Hemoglobin 31.1 pg (25-34) Mean Corpuscular Hemoglobin Concent 32.8 g/dl (32-36) Platelet Count 140 K/uL (130-400) Mean Platelet Volume 11.4 fL (7.4-10.4) Neutrophils (%) (Auto) 76.9 % Lymphocytes (%) (Auto) 12.8 % Monocytes (%) (Auto) 7.8 % Eosinophils (%) (Auto) 1.7 % Basophils (%) (Auto) 0.7 % Neutrophils # (Auto) 6.48 K/uL (1.4-6.5) Lymphocytes # (Auto) 1.08 K/uL (1.2-3.4) Monocytes # (Auto) 0.66 K/uL (0.11-0.59) Eosinophils # (Auto) 0.14 K/uL (0-0.5) Basophils # (Auto) 0.06 K/uL (0-0.2) RDW Standard Deviation 50.7 fL (36.4-46.3) RDW Coefficient of Variation 14.7 % (11.5-14.5) Immature Granulocyte % (Auto) 0.1 % Immature Granulocyte # (Auto) 0.01 K/uL (0.00-0.02) Anion Gap 18.0 mmol/L (3-11) Est Creatinine Clear Calc Drug Dose 5.3 ml/min Estimated GFR () 3.3 Estimated GFR (Non- 2.9 BUN/Creatinine Ratio 5.8 (10-20) Calcium Level 8.5 mg/dl (8.5-10.1) Ammonia 37.0 umol/L (11-32) Test 12/13/16 06:31 12/13/16 08:58 Bedside Glucose 110 mg/dl (70-90) White Blood Count 7.52 K/uL (4.8-10.8) Red Blood Count 3.49 M/uL (4.2-5.4) Hemoglobin 10.6 g/dL (12.0-16.0) Hematocrit 33.3 % (37-47) Mean Corpuscular Volume 95.4 fL (80-100) Mean Corpuscular Hemoglobin 30.4 pg (25-34) Mean Corpuscular Hemoglobin Concent 31.8 g/dl (32-36) Platelet Count 143 K/uL (130-400) Mean Platelet Volume 11.4 fL (7.4-10.4) Neutrophils (%) (Auto) 70.9 % Lymphocytes (%) (Auto) 16.8 % Monocytes (%) (Auto) 8.9 % Eosinophils (%) (Auto) 2.3 % Basophils (%) (Auto) 0.8 % Neutrophils # (Auto) 5.34 K/uL (1.4-6.5) Lymphocytes # (Auto) 1.26 K/uL (1.2-3.4) Monocytes # (Auto) 0.67 K/uL (0.11-0.59) Eosinophils # (Auto) 0.17 K/uL (0-0.5) Basophils # (Auto) 0.06 K/uL (0-0.2) RDW Standard Deviation 51.1 fL (36.4-46.3) RDW Coefficient of Variation 14.7 % (11.5-14.5) Immature Granulocyte % (Auto) 0.3 % Immature Granulocyte # (Auto) 0.02 K/uL (0.00-0.02) Ammonia 51.0 umol/L (11-32) Allergies Coded Allergies: Levofloxacin (Verified Allergy, Mild, rash/redness at IV site, 11/11/16) Iodinated Diagnostic Agents (Verified Allergy, Unknown, unknown, 11/11/16) Losartan (Verified Allergy, Unknown, rash, 11/11/16) Phenobarbital (Verified Allergy, Unknown, difficulty breathing, 11/11/16) Medications Current Inpatient Medications Medications (Trade) Dose Ordered Sig/Ronn Route Start Time Stop Time Status Last Admin Dose Admin Gabapentin (Neurontin) 200 mg HS NG 12/11/16 21:00 01/10/17 20:59 12/12/16 21:03 200 MG Lactulose (Chronulac Syrup) 45 gm TID NG 12/11/16 21:00 01/10/17 20:59 12/13/16 08:06 45 GM Midodrine (Proamatine Tab) 20 mg DAILY NG 12/12/16 09:00 01/11/17 08:59 12/13/16 08:49 20 MG Rifaximin (Xifaxan Tab) 550 mg BID NG 12/11/16 21:00 01/10/17 20:59 12/13/16 08:05 550 MG Simvastatin (Zocor Tab) 20 mg HS NG 12/11/16 21:00 01/10/17 20:59 12/12/16 20:57 20 MG Vitamin B Complex/ Vit C/Folic Acid (Nephrocaps) 1 cap DAILYBD PO 12/12/16 16:15 01/11/17 16:14 Future Hold Insulin Aspart SLIDING SCALE G... ACHS SC 12/11/16 21:00 01/10/17 20:59 12/13/16 08:08 5 UNITS Pantoprazole Sodium/Syringe (Protonix Inj/ Syringe) 10 ml @ 5 mls/min DAILY@11 IV 12/12/16 11:00 01/11/17 10:59 12/12/16 11:33 5 MLS/MIN Estradiol (Estrace Tab) 0.5 mg HS NG 12/11/16 21:00 01/10/17 20:59 12/12/16 20:56 0.5 MG Heparin Sodium (Porcine) (Heparin Sq 5000 Unit/0.5ml) 5,000 unit Q12 SQ 12/11/16 21:00 01/10/17 20:59 12/13/16 08:08 5,000 UNIT Ondansetron HCl (Zofran Inj) 4 mg Q6H PRN IV 12/11/16 19:45 01/10/17 19:44 Polyethylene 17 gm 17 gm DAILY PRN NG 12/11/16 19:45 01/10/17 19:44 Ceftriaxone Sodium/Dextrose (Rocephin Inj/D5 50ml) 60 ml @ 100 mls/hr Q24H IV 12/11/16 21:00 12/21/16 20:59 12/13/16 02:14 100 MLS/HR Insulin Glargine (Lantus Solostar Pen) 12 unit HS SC 12/11/16 21:00 01/10/17 20:59 12/12/16 21:05 12 UNIT Sevelamer HCl (Renagel Tab) 1,600 mg TIDM PO 12/11/16 20:00 01/10/17 19:59 12/13/16 08:05 1,600 MG Impression (1) End stage renal disease on dialysis (2) Anemia (3) Autonomic dysfunction (4) Metabolic encephalopathy (5) Secondary hyperparathyroidism of renal origin Yolande is a 66 year-old female with HTN, CAD, DM, GANDHI cirrhosis and ESRD admitted with hepatic encephalopathy. She dialyzes TTS at [place]. EDW of 106.5 kg. Midodrine prior to treatment for dialytic hypotension. HE clinically improving. Recommendations -- HD MWF -- Blood pressure and volume status appropriate -- Renal profile pending -- Medications appropriate for renal function -- Sevelamer QAC -- Epogen with HD for anemia -- Some prolonged bleeding post HD. Qb appropriate. Suggest follow up with Dr. Ambrose as outpatient following discharge
[2016-12-13 09:55] LABS: BUN/CREATININE RATIO 4.1 (10-20); CALCIUM 8.1 mg/dl (8.5-10.1); CREATININE 6.4 mg/dl (0.60-1.20); POTASSIUM 3.4 mmol/L (3.5-5.1)
[2016-12-13] MEDS: PANTOprazole INJ 40 MG in SYRINGE 0 ML IV SCH (11:07)
--- NOTE | 2016-12-13 14:26 | Gastroenterology Progress Note ---
Progress Note Date of Service: Dec 13, 2016 Subjective Pt evaluation today including: conversation w/ patient, physical exam, chart review, lab review, review of studies, review of inpatient medication list cc f/u hepatic encephalopathy HPI Pt is alert. She does not recall being confused. Knows she is in hospital in [place]. No abd pain. Review of Systems Respiratory: No shortness of breath Cardiac: No chest pain Medications Current Inpatient Medications Medications (Trade) Dose Ordered Sig/Ronn Route Start Time Stop Time Status Last Admin Dose Admin Gabapentin (Neurontin) 200 mg HS NG 12/11/16 21:00 01/10/17 20:59 12/12/16 21:03 200 MG Lactulose (Chronulac Syrup) 45 gm TID NG 12/11/16 21:00 01/10/17 20:59 12/13/16 13:24 45 GM Midodrine (Proamatine Tab) 20 mg DAILY NG 12/12/16 09:00 01/11/17 08:59 12/13/16 08:49 20 MG Rifaximin (Xifaxan Tab) 550 mg BID NG 12/11/16 21:00 01/10/17 20:59 12/13/16 08:05 550 MG Simvastatin (Zocor Tab) 20 mg HS NG 12/11/16 21:00 01/10/17 20:59 12/12/16 20:57 20 MG Vitamin B Complex/ Vit C/Folic Acid (Nephrocaps) 1 cap DAILYBD PO 12/12/16 16:15 01/11/17 16:14 Future Hold Insulin Aspart SLIDING SCALE G... ACHS SC 12/11/16 21:00 01/10/17 20:59 12/13/16 12:13 6 UNITS Pantoprazole Sodium/Syringe (Protonix Inj/ Syringe) 10 ml @ 5 mls/min DAILY@11 IV 12/12/16 11:00 01/11/17 10:59 12/13/16 11:07 5 MLS/MIN Estradiol (Estrace Tab) 0.5 mg HS NG 12/11/16 21:00 01/10/17 20:59 12/12/16 20:56 0.5 MG Heparin Sodium (Porcine) (Heparin Sq 5000 Unit/0.5ml) 5,000 unit Q12 SQ 12/11/16 21:00 01/10/17 20:59 12/13/16 08:08 5,000 UNIT Ondansetron HCl (Zofran Inj) 4 mg Q6H PRN IV 12/11/16 19:45 01/10/17 19:44 Polyethylene 17 gm 17 gm DAILY PRN NG 12/11/16 19:45 01/10/17 19:44 Ceftriaxone Sodium/Dextrose (Rocephin Inj/D5 50ml) 60 ml @ 100 mls/hr Q24H IV 12/11/16 21:00 12/21/16 20:59 12/13/16 02:14 100 MLS/HR Insulin Glargine (Lantus Solostar Pen) 12 unit HS SC 12/11/16 21:00 01/10/17 20:59 12/12/16 21:05 12 UNIT Sevelamer HCl (Renagel Tab) 1,600 mg TIDM PO 12/11/16 20:00 01/10/17 19:59 12/13/16 11:07 1,600 MG Objective Vital Signs Date Time Temp Pulse Resp B/P Pulse Ox O2 Delivery O2 Flow Rate FiO2 12/13/16 12:02 37.5 60 18 110/49 94 Room Air 12/13/16 12:00 Nasal Cannula 2.0 12/13/16 08:03 37.3 64 18 98/53 94 Room Air 12/13/16 08:00 Nasal Cannula 2.0 12/13/16 04:00 94 Room Air 12/13/16 03:28 36.7 65 20 101/45 94 Room Air 12/13/16 01:48 37.4 70 105/64 12/13/16 01:00 69 108/62 12/13/16 00:30 77 109/60 12/13/16 00:15 71 123/55 12/13/16 00:00 70 105/53 12/12/16 23:59 96 Room Air 12/12/16 23:45 74 106/58 12/12/16 23:30 72 91/56 12/12/16 23:15 75 112/46 12/12/16 23:00 69 120/42 12/12/16 22:45 69 103/55 12/12/16 22:30 68 93/54 12/12/16 22:15 59 95/57 12/12/16 22:00 72 104/50 12/12/16 21:45 66 85/58 12/12/16 21:30 71 107/51 12/12/16 21:15 70 104/55 12/12/16 21:06 71 116/59 12/12/16 20:45 38.1 72 96/44 12/12/16 20:13 37.7 74 18 101/49 97 Room Air 12/12/16 20:00 96 Room Air 12/12/16 16:00 97 Room Air 12/12/16 15:50 36.8 86 18 119/65 97 Physical Exam General Appearance: WD/WN, no apparent distress Respiratory/Chest: lungs clear, no respiratory distress Cardiovascular: regular rate, rhythm Abdomen: normal bowel sounds, non tender, soft, no organomegaly Laboratory Results Last 24 Hours Test 12/12/16 16:23 12/12/16 20:59 12/12/16 21:02 12/13/16 06:31 Bedside Glucose 169 mg/dl 214 mg/dl 110 mg/dl White Blood Count 8.43 K/uL Red Blood Count 3.31 M/uL Hemoglobin 10.3 g/dL Hematocrit 31.4 % Mean Corpuscular Volume 94.9 fL Mean Corpuscular Hemoglobin 31.1 pg Mean Corpuscular Hemoglobin Concent 32.8 g/dl Platelet Count 140 K/uL Mean Platelet Volume 11.4 fL Neutrophils (%) (Auto) 76.9 % Lymphocytes (%) (Auto) 12.8 % Monocytes (%) (Auto) 7.8 % Eosinophils (%) (Auto) 1.7 % Basophils (%) (Auto) 0.7 % Neutrophils # (Auto) 6.48 K/uL Lymphocytes # (Auto) 1.08 K/uL Monocytes # (Auto) 0.66 K/uL Eosinophils # (Auto) 0.14 K/uL Basophils # (Auto) 0.06 K/uL RDW Standard Deviation 50.7 fL RDW Coefficient of Variation 14.7 % Immature Granulocyte % (Auto) 0.1 % Immature Granulocyte # (Auto) 0.01 K/uL Sodium Level 141 mmol/L Potassium Level 4.2 mmol/L Chloride Level 102 mmol/L Carbon Dioxide Level 21 mmol/L Anion Gap 18.0 mmol/L Blood Urea Nitrogen 70 mg/dl Creatinine 12.00 mg/dl Est Creatinine Clear Calc Drug Dose 5.3 ml/min Estimated GFR () 3.3 Estimated GFR (Non- 2.9 BUN/Creatinine Ratio 5.8 Random Glucose 208 mg/dl Calcium Level 8.5 mg/dl Ammonia 37.0 umol/L Test 12/13/16 08:58 12/13/16 11:27 White Blood Count 7.52 K/uL Red Blood Count 3.49 M/uL Hemoglobin 10.6 g/dL Hematocrit 33.3 % Mean Corpuscular Volume 95.4 fL Mean Corpuscular Hemoglobin 30.4 pg Mean Corpuscular Hemoglobin Concent 31.8 g/dl Platelet Count 143 K/uL Mean Platelet Volume 11.4 fL Neutrophils (%) (Auto) 70.9 % Lymphocytes (%) (Auto) 16.8 % Monocytes (%) (Auto) 8.9 % Eosinophils (%) (Auto) 2.3 % Basophils (%) (Auto) 0.8 % Neutrophils # (Auto) 5.34 K/uL Lymphocytes # (Auto) 1.26 K/uL Monocytes # (Auto) 0.67 K/uL Eosinophils # (Auto) 0.17 K/uL Basophils # (Auto) 0.06 K/uL RDW Standard Deviation 51.1 fL RDW Coefficient of Variation 14.7 % Immature Granulocyte % (Auto) 0.3 % Immature Granulocyte # (Auto) 0.02 K/uL Sodium Level 138 mmol/L Potassium Level 3.4 mmol/L Chloride Level 99 mmol/L Carbon Dioxide Level 25 mmol/L Anion Gap 14.0 mmol/L Blood Urea Nitrogen 26 mg/dl Creatinine 6.40 mg/dl Est Creatinine Clear Calc Drug Dose 9.8 ml/min Estimated GFR () 7.2 Estimated GFR (Non- 6.2 BUN/Creatinine Ratio 4.1 Random Glucose 198 mg/dl Calcium Level 8.1 mg/dl Ammonia 51.0 umol/L Bedside Glucose 148 mg/dl Assessment and Plan hepatic encephalopathy--improved on Xifaxan and lactulose cirrhosis---per nurse daughter states she had a liver bx last summer. If patient desires GI care in [place] then recommend GI f/u in the office and can get all the outside records to see what workup has been done elevated LFTS-from etiology causing cirrhosis anemia---stable--not sure what type of endoscopic therapy she has had done in past. Would need to get records and may needs scopes as outpt. IN nursing notes stools reported as brown so no gross GI bleeding.
--- NOTE | 2016-12-13 16:58 | Progress Note ---
Subjective Date of Service: Dec 13, 2016. Subjective this pt is more awake and alert, still c/o some shaking (maybe asterixis) as ammonia is 51, no focal complaints otherwise Review of Systems Constitutional: + fatigue, + weakness, No chills, No fever Respiratory: No cough, No shortness of breath Cardiac: + edema, No chest pain Abdomen: + nausea, + problem reported (distension), No constipation, No diarrhea, No pain, No vomiting Female : No dysuria, No urinary frequency Objective Vital Signs Date Time Temp Pulse Resp B/P Pulse Ox O2 Delivery O2 Flow Rate FiO2 12/13/16 16:09 37.2 80 17 117/54 94 Room Air 12/13/16 14:12 37.5 60 18 94 2.0 12/13/16 12:02 37.5 60 18 110/49 94 Room Air 12/13/16 12:00 Nasal Cannula 2.0 12/13/16 08:03 37.3 64 18 98/53 94 Room Air 12/13/16 08:00 Nasal Cannula 2.0 12/13/16 04:00 94 Room Air 12/13/16 03:28 36.7 65 20 101/45 94 Room Air 12/13/16 01:48 37.4 70 105/64 12/13/16 01:00 69 108/62 12/13/16 00:30 77 109/60 12/13/16 00:15 71 123/55 12/13/16 00:00 70 105/53 12/12/16 23:59 96 Room Air 12/12/16 23:45 74 106/58 12/12/16 23:30 72 91/56 12/12/16 23:15 75 112/46 12/12/16 23:00 69 120/42 12/12/16 22:45 69 103/55 12/12/16 22:30 68 93/54 12/12/16 22:15 59 95/57 12/12/16 22:00 72 104/50 12/12/16 21:45 66 85/58 12/12/16 21:30 71 107/51 12/12/16 21:15 70 104/55 12/12/16 21:06 71 116/59 12/12/16 20:45 38.1 72 96/44 12/12/16 20:13 37.7 74 18 101/49 97 Room Air 12/12/16 20:00 96 Room Air Physical Exam General Appearance: WD/WN, + mild distress Neck: supple, no JVD Respiratory/Chest: chest non-tender, lungs clear, + decreased breath sounds ( bases) Cardiovascular: + systolic murmur Abdomen: soft, + distended Extremities: no calf tenderness, + pedal edema Neurologic/Psychiatric: alert, oriented x 3 Laboratory Results Last 24 Hours Test 12/12/16 20:59 12/12/16 21:02 12/13/16 06:31 12/13/16 08:58 White Blood Count 8.43 K/uL 7.52 K/uL Red Blood Count 3.31 M/uL 3.49 M/uL Hemoglobin 10.3 g/dL 10.6 g/dL Hematocrit 31.4 % 33.3 % Mean Corpuscular Volume 94.9 fL 95.4 fL Mean Corpuscular Hemoglobin 31.1 pg 30.4 pg Mean Corpuscular Hemoglobin Concent 32.8 g/dl 31.8 g/dl Platelet Count 140 K/uL 143 K/uL Mean Platelet Volume 11.4 fL 11.4 fL Neutrophils (%) (Auto) 76.9 % 70.9 % Lymphocytes (%) (Auto) 12.8 % 16.8 % Monocytes (%) (Auto) 7.8 % 8.9 % Eosinophils (%) (Auto) 1.7 % 2.3 % Basophils (%) (Auto) 0.7 % 0.8 % Neutrophils # (Auto) 6.48 K/uL 5.34 K/uL Lymphocytes # (Auto) 1.08 K/uL 1.26 K/uL Monocytes # (Auto) 0.66 K/uL 0.67 K/uL Eosinophils # (Auto) 0.14 K/uL 0.17 K/uL Basophils # (Auto) 0.06 K/uL 0.06 K/uL RDW Standard Deviation 50.7 fL 51.1 fL RDW Coefficient of Variation 14.7 % 14.7 % Immature Granulocyte % (Auto) 0.1 % 0.3 % Immature Granulocyte # (Auto) 0.01 K/uL 0.02 K/uL Sodium Level 141 mmol/L 138 mmol/L Potassium Level 4.2 mmol/L 3.4 mmol/L Chloride Level 102 mmol/L 99 mmol/L Carbon Dioxide Level 21 mmol/L 25 mmol/L Anion Gap 18.0 mmol/L 14.0 mmol/L Blood Urea Nitrogen 70 mg/dl 26 mg/dl Creatinine 12.00 mg/dl 6.40 mg/dl Est Creatinine Clear Calc Drug Dose 5.3 ml/min 9.8 ml/min Estimated GFR () 3.3 7.2 Estimated GFR (Non- 2.9 6.2 BUN/Creatinine Ratio 5.8 4.1 Random Glucose 208 mg/dl 198 mg/dl Calcium Level 8.5 mg/dl 8.1 mg/dl Ammonia 37.0 umol/L 51.0 umol/L Bedside Glucose 214 mg/dl 110 mg/dl Test 12/13/16 11:27 12/13/16 16:36 Bedside Glucose 148 mg/dl 129 mg/dl Assessment and Plan 66-F with toxic encephalopathy from missing Dialysis session Thursday, and Thursday. She came here as a direct transfer from [place] due to lack of dialysis services. Concern for UTI drawn at [facility] final cultures pending Non-alcoholic steatohepatitis cirrhosis and subsequent Hepatic encephalopathy improved with lactulose 45 grams t.i.d. with rifaximin via NG tube, removed ngt 12/12 due to improved mentation. Ammonia has improved and GI medicine is following End-stage renal disease, restart dialysis, continue with phosphate binders, K is slighlty low 12/13 will follow before repletion Paroxysmal atrial fibrillation, currently normal sinus rhythm. Bioprosthetic Aortic valve replacement 2014, refuses anticoagulation due to previous GI bleed Suspected urinary tract infection.poa, ceftriaxone 1000 mg await cultures Type 2 diabetes. reduced basal dose due to questionable po intake, continue ssi Postural hypotension, on midodrine. Deep venous thrombosis prophylaxis is heparin subcu. full code
[2016-12-13] MEDS: SIMVASTATIN 20 MG TAB NG SCH (20:37)
[2016-12-13] MEDS: GABAPENTIN 250 MG/5 ML 470 ML BTL NG SCH (20:37)
[2016-12-13] MEDS: ESTRADIOL 1 MG TAB NG SCH (20:38)
[2016-12-13] MEDS: INSULIN GLARGINE SOLOSTAR 100 UNITS/ML 3 ML PEN SC SCH (20:47)
[2016-12-14 00:11] VITALS: BP 123/56; PULSE 68; TEMP 36.9; O2SAT 93
[2016-12-14 08:17] VITALS: BP 120/77; PULSE 59; TEMP 36.7; O2SAT 97
[2016-12-14] MEDS: MIDODRINE 10 MG TAB NG SCH (08:29)
[2016-12-14] MEDS: LACTULOSE SYRUP 10 GM/15 ML BTL 473 ML NG SCH ×3 (08:29→20:08)
[2016-12-14] MEDS: RIFAXIMIN TAB 550 MG TAB NG SCH ×2 (08:30→20:07)
[2016-12-14] MEDS: SEVELAMER HYDROCH 800 MG TAB PO SCH ×3 (08:30→17:35)
[2016-12-14] MEDS: INSULIN ASPART 100 UNITS/ML 3 ML PEN SC SCH ×4 (08:43→20:16)
[2016-12-14] MEDS: HEPARIN SOD 5000 UNIT/0.5 ML CARP SQ SCH ×2 (08:43→20:18)
[2016-12-14 08:46] LABS: BASO % 1.7 %; BASO ABS # 0.12 K/uL (0-0.2); COMPLETE YES; EOS % 3.8 %; HEMATOCRIT 34.1 % (37-47); IG% 0.1 %; LYMPH % 27.6 %; LYMPH ABS # 1.91 K/uL (1.2-3.4); MEAN CELL VOLUME 96.3 fL (80-100); MEAN CORPUSCULAR HEMOGLOBIN 30.2 pg (25-34); MEAN CORPUSCULAR HGB CONC 31.4 g/dl (32-36); MEAN PLATELET VOLUME 11.8 fL (7.4-10.4); NEUT % 56.8 %; PLATELET COUNT 154 K/uL (130-400); RED BLOOD COUNT 3.54 M/uL (4.2-5.4); WHITE BLOOD COUNT 6.93 K/uL (4.8-10.8)
[2016-12-14 08:50] LABS: ALB/GLOB RATIO 0.7 (0.9-2); BUN/CREATININE RATIO 4.3 (10-20); CALCIUM 9.1 mg/dl (8.5-10.1); CREATININE 8.3 mg/dl (0.60-1.20); POTASSIUM 3.4 mmol/L (3.5-5.1)
--- NOTE | 2016-12-14 11:14 | Nephrology Progress Note ---
Nephrology Progress Note Date of Service Dec 14, 2016. Chief Complaint ESRD on HD Subjective No acute events overnight. No complaints this morning. Denies pain. Shaking improved. Encephalopathy dramatically improved. Yolande was talking to her daughter this morning on the phone. They are both hopeful that she can be discharged home today or tomorrow. She is breathing comfortably. She does not endorse any urinary complaints. I discussed the plan of care with Dr. Graham. Review of Systems A complete review of systems was performed. Pertinent positives are noted above. All other systems are negative. Vital Signs Last 8 Hrs Date Time Temp Pulse Resp B/P Pulse Ox O2 Delivery O2 Flow Rate FiO2 12/14/16 08:17 36.7 59 17 120/77 97 Room Air 12/14/16 08:00 Room Air I & O 24-Hour Column 12/14/16 07:59 Intake Total 420 ml Balance 420 ml Last Recorded Weight Weight (Kilograms): 106.200 Physical Exam General Appearance: WD/WN, no apparent distress Head: normocephalic, atraumatic Eyes: normal inspection, sclerae normal ENT: normal ENT inspection, pharynx normal Neck: supple, no JVD Respiratory/Chest: lungs clear, no respiratory distress, no accessory muscle use Cardiovascular: regular rate, rhythm, + systolic murmur Back: normal inspection, no muscle spasm Abdomen/GI: non tender, soft Extremities/Musculoskelatal: normal inspection, no pedal edema, + pertinent finding (AVF with thrill and bruit) Neurologic/Psych: alert, oriented x 3 Laboratory Results Past 24 Hours 12/14/16 08:25 Red Blood Count 3.54, Mean Corpuscular Volume 96.3, Mean Corpuscular Hemoglobin 30.2, Mean Corpuscular Hemoglobin Concent 31.4, Mean Platelet Volume 11.8, Neutrophils (%) (Auto) 56.8, Lymphocytes (%) (Auto) 27.6, Monocytes (%) (Auto) 10.0, Eosinophils (%) (Auto) 3.8, Basophils (%) (Auto) 1.7, Neutrophils # (Auto ) 3.94, Lymphocytes # (Auto) 1.91, Monocytes # (Auto) 0.69, Eosinophils # (Auto ) 0.26, Basophils # (Auto) 0.12 12/14/16 07:50 Test 12/13/16 11:27 12/13/16 16:36 12/13/16 19:56 12/14/16 07:47 Bedside Glucose 148 mg/dl (70-90) 129 mg/dl (70-90) 143 mg/dl (70-90) 117 mg/dl (70-90) Test 12/14/16 07:50 12/14/16 08:25 Anion Gap 14.0 mmol/L (3-11) Est Creatinine Clear Calc Drug Dose 7.5 ml/min Estimated GFR () 5.2 Estimated GFR (Non- 4.5 BUN/Creatinine Ratio 4.3 (10-20) Calcium Level 9.1 mg/dl (8.5-10.1) Total Bilirubin 0.4 mg/dl (0.2-1) Aspartate Amino Transf (AST/SGOT) 19 U/L (15-37) Alanine Aminotransferase (ALT/SGPT) 9 U/L (12-78) Alkaline Phosphatase 176 U/L (45-117) Total Protein 6.4 gm/dl (6.4-8.2) Albumin 2.6 gm/dl (3.4-5.0) Globulin 3.8 gm/dl (2.5-4.0) Albumin/Globulin Ratio 0.7 (0.9-2) White Blood Count 6.93 K/uL (4.8-10.8) Red Blood Count 3.54 M/uL (4.2-5.4) Hemoglobin 10.7 g/dL (12.0-16.0) Hematocrit 34.1 % (37-47) Mean Corpuscular Volume 96.3 fL (80-100) Mean Corpuscular Hemoglobin 30.2 pg (25-34) Mean Corpuscular Hemoglobin Concent 31.4 g/dl (32-36) Platelet Count 154 K/uL (130-400) Mean Platelet Volume 11.8 fL (7.4-10.4) Neutrophils (%) (Auto) 56.8 % Lymphocytes (%) (Auto) 27.6 % Monocytes (%) (Auto) 10.0 % Eosinophils (%) (Auto) 3.8 % Basophils (%) (Auto) 1.7 % Neutrophils # (Auto) 3.94 K/uL (1.4-6.5) Lymphocytes # (Auto) 1.91 K/uL (1.2-3.4) Monocytes # (Auto) 0.69 K/uL (0.11-0.59) Eosinophils # (Auto) 0.26 K/uL (0-0.5) Basophils # (Auto) 0.12 K/uL (0-0.2) RDW Standard Deviation 52.7 fL (36.4-46.3) RDW Coefficient of Variation 14.8 % (11.5-14.5) Immature Granulocyte % (Auto) 0.1 % Immature Granulocyte # (Auto) 0.01 K/uL (0.00-0.02) Ammonia 36.0 umol/L (11-32) Date/Time Source Procedure Growth Status 12/13/16 17:00 Nasal MRSA DNA Surveillance Screen - Final Specimen Negative for MRSA by DNA Probe Complete Allergies Coded Allergies: Levofloxacin (Verified Allergy, Mild, rash/redness at IV site, 11/11/16) Iodinated Diagnostic Agents (Verified Allergy, Unknown, unknown, 11/11/16) Losartan (Verified Allergy, Unknown, rash, 11/11/16) Phenobarbital (Verified Allergy, Unknown, difficulty breathing, 11/11/16) Medications Current Inpatient Medications Medications (Trade) Dose Ordered Sig/Ronn Route Start Time Stop Time Status Last Admin Dose Admin Gabapentin (Neurontin) 200 mg HS NG 12/11/16 21:00 01/10/17 20:59 12/13/16 20:37 200 MG Lactulose (Chronulac Syrup) 45 gm TID NG 12/11/16 21:00 01/10/17 20:59 12/14/16 08:29 45 GM Midodrine (Proamatine Tab) 20 mg DAILY NG 12/12/16 09:00 01/11/17 08:59 12/14/16 08:29 20 MG Rifaximin (Xifaxan Tab) 550 mg BID NG 12/11/16 21:00 01/10/17 20:59 12/14/16 08:30 550 MG Simvastatin (Zocor Tab) 20 mg HS NG 12/11/16 21:00 01/10/17 20:59 12/13/16 20:37 20 MG Vitamin B Complex/ Vit C/Folic Acid (Nephrocaps) 1 cap DAILYBD PO 12/12/16 16:15 01/11/17 16:14 Future Hold Insulin Aspart SLIDING SCALE G... ACHS SC 12/11/16 21:00 01/10/17 20:59 12/14/16 08:43 7 UNITS Pantoprazole Sodium/Syringe (Protonix Inj/ Syringe) 10 ml @ 5 mls/min DAILY@11 IV 12/12/16 11:00 01/11/17 10:59 12/13/16 11:07 5 MLS/MIN Estradiol (Estrace Tab) 0.5 mg HS NG 12/11/16 21:00 01/10/17 20:59 12/13/16 20:38 0.5 MG Heparin Sodium (Porcine) (Heparin Sq 5000 Unit/0.5ml) 5,000 unit Q12 SQ 12/11/16 21:00 01/10/17 20:59 12/14/16 08:43 5,000 UNIT Ondansetron HCl (Zofran Inj) 4 mg Q6H PRN IV 12/11/16 19:45 01/10/17 19:44 12/13/16 17:40 4 MG Polyethylene 17 gm 17 gm DAILY PRN NG 12/11/16 19:45 01/10/17 19:44 Ceftriaxone Sodium/Dextrose (Rocephin Inj/D5 50ml) 60 ml @ 100 mls/hr Q24H IV 12/11/16 21:00 12/21/16 20:59 12/13/16 21:39 100 MLS/HR Insulin Glargine (Lantus Solostar Pen) 12 unit HS SC 12/11/16 21:00 01/10/17 20:59 12/13/16 20:47 12 UNIT Sevelamer HCl (Renagel Tab) 1,600 mg TIDM PO 12/11/16 20:00 01/10/17 19:59 12/14/16 08:30 1,600 MG Impression (1) End stage renal disease on dialysis (2) Anemia (3) Autonomic dysfunction (4) Metabolic encephalopathy (5) Secondary hyperparathyroidism of renal origin Yolande is a 66 year-old female with HTN, CAD, DM, GANDHI cirrhosis and ESRD admitted with hepatic encephalopathy. She dialyzes TTS at [facility]. EDW of 106.5 kg. Midodrine prior to treatment for dialytic hypotension. HE clinically improving. She was last dialyzed on Thursday as an inpatient after having missed her treatment. Remains on ceftriaxone as inpatient for reported UTI. Recommendations -- Plan next dialysis treatment tomorrow morning -- Blood pressure and volume status appropriate -- Electrolytes acceptable -- Medications appropriate for renal function -- Urine culture from [facility]'s pending -- Sevelamer QAC for hyperphosphatemia -- Epogen with HD for anemia -- Some prolonged bleeding post HD. Qb appropriate. Suggest follow up with Dr. Ambrose as outpatient following discharge
--- NOTE | 2016-12-14 12:20 | Gastroenterology Progress Note ---
Progress Note Date of Service: Dec 14, 2016 Subjective Pt evaluation today including: conversation w/ patient, physical exam, chart review, lab review, review of studies, review of inpatient medication list CC f/u encephalopathy HPI Pt is alert. Asking about DC today. NO abd pain. Is having diarrhea from lactulose. Review of Systems Respiratory: No shortness of breath Cardiac: No chest pain Medications Current Inpatient Medications Medications (Trade) Dose Ordered Sig/Ronn Route Start Time Stop Time Status Last Admin Dose Admin Gabapentin (Neurontin) 200 mg HS NG 12/11/16 21:00 01/10/17 20:59 12/13/16 20:37 200 MG Lactulose (Chronulac Syrup) 45 gm TID NG 12/11/16 21:00 01/10/17 20:59 12/14/16 08:29 45 GM Midodrine (Proamatine Tab) 20 mg DAILY NG 12/12/16 09:00 01/11/17 08:59 12/14/16 08:29 20 MG Rifaximin (Xifaxan Tab) 550 mg BID NG 12/11/16 21:00 01/10/17 20:59 12/14/16 08:30 550 MG Simvastatin (Zocor Tab) 20 mg HS NG 12/11/16 21:00 01/10/17 20:59 12/13/16 20:37 20 MG Vitamin B Complex/ Vit C/Folic Acid (Nephrocaps) 1 cap DAILYBD PO 12/12/16 16:15 01/11/17 16:14 Future Hold Insulin Aspart SLIDING SCALE G... ACHS SC 12/11/16 21:00 01/10/17 20:59 12/14/16 08:43 7 UNITS Pantoprazole Sodium/Syringe (Protonix Inj/ Syringe) 10 ml @ 5 mls/min DAILY@11 IV 12/12/16 11:00 01/11/17 10:59 12/13/16 11:07 5 MLS/MIN Estradiol (Estrace Tab) 0.5 mg HS NG 12/11/16 21:00 01/10/17 20:59 12/13/16 20:38 0.5 MG Heparin Sodium (Porcine) (Heparin Sq 5000 Unit/0.5ml) 5,000 unit Q12 SQ 12/11/16 21:00 01/10/17 20:59 2/12/17 08:43 5,000 UNIT Ondansetron HCl (Zofran Inj) 4 mg Q6H PRN IV 12/11/16 19:45 01/10/17 19:44 12/13/16 17:40 4 MG Polyethylene 17 gm 17 gm DAILY PRN NG 12/11/16 19:45 01/10/17 19:44 Ceftriaxone Sodium/Dextrose (Rocephin Inj/D5 50ml) 60 ml @ 100 mls/hr Q24H IV 12/11/16 21:00 12/21/16 20:59 12/13/16 21:39 100 MLS/HR Insulin Glargine (Lantus Solostar Pen) 12 unit HS SC 12/11/16 21:00 01/10/17 20:59 12/13/16 20:47 12 UNIT Sevelamer HCl (Renagel Tab) 1,600 mg TIDM PO 12/11/16 20:00 01/10/17 19:59 12/14/16 12:05 1,600 MG Objective Vital Signs Date Time Temp Pulse Resp B/P Pulse Ox O2 Delivery O2 Flow Rate FiO2 12/14/16 08:17 36.7 59 17 120/77 97 Room Air 12/14/16 08:00 Room Air 12/14/16 00:12 Room Air 12/14/16 00:11 36.9 68 18 123/56 93 Room Air 12/13/16 20:00 Room Air 12/13/16 17:26 Room Air 12/13/16 16:09 37.2 80 17 117/54 94 Room Air 12/13/16 14:12 37.5 60 18 94 2.0 Physical Exam General Appearance: WD/WN, no apparent distress Respiratory/Chest: normal breath sounds, no respiratory distress Cardiovascular: no murmur Abdomen: normal bowel sounds, non tender, soft Neurologic/Psych: normal mood/affect, oriented x 3 Laboratory Results Last 24 Hours Test 12/13/16 16:36 12/13/16 19:56 12/14/16 07:47 12/14/16 07:50 Bedside Glucose 129 mg/dl 143 mg/dl 117 mg/dl Sodium Level 143 mmol/L Potassium Level 3.4 mmol/L Chloride Level 103 mmol/L Carbon Dioxide Level 26 mmol/L Anion Gap 14.0 mmol/L Blood Urea Nitrogen 36 mg/dl Creatinine 8.30 mg/dl Est Creatinine Clear Calc Drug Dose 7.5 ml/min Estimated GFR () 5.2 Estimated GFR (Non- 4.5 BUN/Creatinine Ratio 4.3 Random Glucose 135 mg/dl Calcium Level 9.1 mg/dl Total Bilirubin 0.4 mg/dl Aspartate Amino Transf (AST/SGOT) 19 U/L Alanine Aminotransferase (ALT/SGPT) 9 U/L Alkaline Phosphatase 176 U/L Total Protein 6.4 gm/dl Albumin 2.6 gm/dl Globulin 3.8 gm/dl Albumin/Globulin Ratio 0.7 Test 12/14/16 08:25 12/14/16 11:37 White Blood Count 6.93 K/uL Red Blood Count 3.54 M/uL Hemoglobin 10.7 g/dL Hematocrit 34.1 % Mean Corpuscular Volume 96.3 fL Mean Corpuscular Hemoglobin 30.2 pg Mean Corpuscular Hemoglobin Concent 31.4 g/dl Platelet Count 154 K/uL Mean Platelet Volume 11.8 fL Neutrophils (%) (Auto) 56.8 % Lymphocytes (%) (Auto) 27.6 % Monocytes (%) (Auto) 10.0 % Eosinophils (%) (Auto) 3.8 % Basophils (%) (Auto) 1.7 % Neutrophils # (Auto) 3.94 K/uL Lymphocytes # (Auto) 1.91 K/uL Monocytes # (Auto) 0.69 K/uL Eosinophils # (Auto) 0.26 K/uL Basophils # (Auto) 0.12 K/uL RDW Standard Deviation 52.7 fL RDW Coefficient of Variation 14.8 % Immature Granulocyte % (Auto) 0.1 % Immature Granulocyte # (Auto) 0.01 K/uL Ammonia 36.0 umol/L Bedside Glucose 197 mg/dl Assessment and Plan hepatic encephalopathy--improved on Xifaxan and lactulose cirrhosis---. If patient desires GI care in [place] then recommend GI f/u in the office and can get all the outside records to see what workup has been done. Told patient to make appointment if she want f/u with us. elevated LFTS-from etiology causing cirrhosis anemia---stable--not sure what type of endoscopic therapy she has had done in past. Would need to get records and may needs scopes as outpt. I am going off service today at [address] Reid assuming GI care then.
[2016-12-14] MEDS: PANTOprazole INJ 40 MG in SYRINGE 0 ML IV SCH (12:36)
--- NOTE | 2016-12-14 14:21 | Progress Note ---
Subjective Date of Service: Dec 14, 2016. Subjective pt is awake and oriented, is interested in seeing GI medicine her with Dr Houston dominguez, anticipate discharge after dialysis 12/15 Review of Systems Constitutional: No chills, No fever Respiratory: No cough, No shortness of breath Cardiac: No chest pain, No edema Abdomen: No diarrhea, No nausea, No pain, No vomiting Female : No dysuria, No urinary frequency Objective Vital Signs Date Time Temp Pulse Resp B/P Pulse Ox O2 Delivery O2 Flow Rate FiO2 12/14/16 08:17 36.7 59 17 120/77 97 Room Air 12/14/16 08:00 Room Air 12/14/16 00:12 Room Air 12/14/16 00:11 36.9 68 18 123/56 93 Room Air 12/13/16 20:00 Room Air 12/13/16 17:26 Room Air 12/13/16 16:09 37.2 80 17 117/54 94 Room Air Physical Exam General Appearance: WD/WN, + mild distress Neck: supple, no JVD Respiratory/Chest: chest non-tender, lungs clear, normal breath sounds Cardiovascular: regular rate, rhythm, no murmur Abdomen: normal bowel sounds, non tender, soft Extremities: no pedal edema, no calf tenderness Laboratory Results Last 24 Hours Test 12/13/16 16:36 12/13/16 19:56 12/14/16 07:47 12/14/16 07:50 Bedside Glucose 129 mg/dl 143 mg/dl 117 mg/dl Sodium Level 143 mmol/L Potassium Level 3.4 mmol/L Chloride Level 103 mmol/L Carbon Dioxide Level 26 mmol/L Anion Gap 14.0 mmol/L Blood Urea Nitrogen 36 mg/dl Creatinine 8.30 mg/dl Est Creatinine Clear Calc Drug Dose 7.5 ml/min Estimated GFR () 5.2 Estimated GFR (Non- 4.5 BUN/Creatinine Ratio 4.3 Random Glucose 135 mg/dl Calcium Level 9.1 mg/dl Total Bilirubin 0.4 mg/dl Aspartate Amino Transf (AST/SGOT) 19 U/L Alanine Aminotransferase (ALT/SGPT) 9 U/L Alkaline Phosphatase 176 U/L Total Protein 6.4 gm/dl Albumin 2.6 gm/dl Globulin 3.8 gm/dl Albumin/Globulin Ratio 0.7 Test 12/14/16 08:25 12/14/16 11:37 White Blood Count 6.93 K/uL Red Blood Count 3.54 M/uL Hemoglobin 10.7 g/dL Hematocrit 34.1 % Mean Corpuscular Volume 96.3 fL Mean Corpuscular Hemoglobin 30.2 pg Mean Corpuscular Hemoglobin Concent 31.4 g/dl Platelet Count 154 K/uL Mean Platelet Volume 11.8 fL Neutrophils (%) (Auto) 56.8 % Lymphocytes (%) (Auto) 27.6 % Monocytes (%) (Auto) 10.0 % Eosinophils (%) (Auto) 3.8 % Basophils (%) (Auto) 1.7 % Neutrophils # (Auto) 3.94 K/uL Lymphocytes # (Auto) 1.91 K/uL Monocytes # (Auto) 0.69 K/uL Eosinophils # (Auto) 0.26 K/uL Basophils # (Auto) 0.12 K/uL RDW Standard Deviation 52.7 fL RDW Coefficient of Variation 14.8 % Immature Granulocyte % (Auto) 0.1 % Immature Granulocyte # (Auto) 0.01 K/uL Ammonia 36.0 umol/L Bedside Glucose 197 mg/dl Assessment and Plan 66-F with toxic encephalopathy from missing Dialysis session Thursday, and Thursday. She came here as a direct transfer from [place] due to lack of dialysis services. Concern for UTI drawn at [facility]'s final cultures pending Non-alcoholic steatohepatitis cirrhosis and subsequent Hepatic encephalopathy improved with lactulose 45 grams t.i.d. with rifaximin via NG tube, removed ngt 12/12 due to improved mentation. Ammonia has improved and GI medicine is following will need to arrange follow up at discharge End-stage renal disease, restart dialysis, continue with phosphate binders, K is slighlty low 12/13 will follow before repletion, will have dialysis 12/15 and then daughter can come in afternoon to take home Paroxysmal atrial fibrillation, currently normal sinus rhythm. Bioprosthetic Aortic valve replacement 2014, refuses anticoagulation due to previous GI bleed Suspected urinary tract infection.poa, ceftriaxone 1000 mg await cultures Type 2 diabetes. reduced basal dose due to questionable po intake, continue ssi Postural hypotension, on midodrine. Deep venous thrombosis prophylaxis is heparin subcu. full code
[2016-12-14 16:29] VITALS: BP 127/76; PULSE 65; TEMP 36.5; O2SAT 94
[2016-12-14] MEDS ORDERED: PROMETHAZINE HCL INJ 12.5 MG in SODIUM CHLORIDE 0.9% 50ML 50 ML IV STA (19:24)
[2016-12-14] MEDS ORDERED: PROCHLORPERAZINE INJ 5 MG in SYRINGE 4 ML IV ONE (19:30)
[2016-12-14] MEDS: ESTRADIOL 1 MG TAB NG SCH (20:07)
[2016-12-14] MEDS: SIMVASTATIN 20 MG TAB NG SCH (20:07)
[2016-12-14] MEDS: INSULIN GLARGINE SOLOSTAR 100 UNITS/ML 3 ML PEN SC SCH (20:17)
[2016-12-14] MEDS: GABAPENTIN 250 MG/5 ML 470 ML BTL NG SCH (20:18)
[2016-12-14] MEDS: CEFTRIAXONE SOD INJ 1,000 MG in DEXTROSE 5% 50ML 50 ML IV SCH (20:18)
--- NOTE | 2016-12-14 23:33 | Progress Note ---
Progress Note Paged by nursing staff to inform me that urine culture sensitivities from [facility] have been faxed over. Report reviewed - Enterococcus Faecalis - Sensitive to: Ampicillin, Ciprofloxacin, Nitrofurantoin, Penicillin, Vancomycin, Levofloxacin, Linezolid - Resistant to: Tetracycline Patient is currently on Ceftriaxone. At this patient, patient on appropriate therapy. Would not deviate from antibiotic choice at this time. Will leave to day team for final decision.
[2016-12-15] VITALS (24 sets, daily range): BP systolic 95–144; BP diastolic 46–93; PULSE 60–130; TEMP 36.4–36.5; O2SAT 96–99
[2016-12-15] MEDS: RIFAXIMIN TAB 550 MG TAB NG SCH (07:46)
[2016-12-15] MEDS: MIDODRINE 10 MG TAB NG SCH (07:46)
[2016-12-15] MEDS: SEVELAMER HYDROCH 800 MG TAB PO SCH ×2 (07:46→12:00)
[2016-12-15] MEDS: LACTULOSE SYRUP 10 GM/15 ML BTL 473 ML NG SCH ×2 (07:47→14:16)
[2016-12-15] MEDS: HEPARIN SOD 5000 UNIT/0.5 ML CARP SQ SCH (07:55)
[2016-12-15] MEDS: INSULIN ASPART 100 UNITS/ML 3 ML PEN SC SCH ×2 (08:03→13:20)
[2016-12-15 08:35] LABS: BASO % 0.5 %; BASO ABS # 0.04 K/uL (0-0.2); COMPLETE YES; EOS % 3.7 %; HEMATOCRIT 34.8 % (37-47); IG% 0.1 %; LYMPH % 14.6 %; LYMPH ABS # 1.07 K/uL (1.2-3.4); MEAN CELL VOLUME 94.8 fL (80-100); MEAN CORPUSCULAR HEMOGLOBIN 30.5 pg (25-34); MEAN CORPUSCULAR HGB CONC 32.2 g/dl (32-36); MEAN PLATELET VOLUME 11.8 fL (7.4-10.4); MONO % 6.9 %; NEUT % 74.2 %; PLATELET COUNT 192 K/uL (130-400); RED BLOOD COUNT 3.67 M/uL (4.2-5.4); WHITE BLOOD COUNT 7.35 K/uL (4.8-10.8)
--- NOTE | 2016-12-15 08:51 | Dialysis Progress Note ---
Hemodialysis Note Date of Service Dec 15, 2016. Chief Complaint Follow up evaluation of this patient with ESRD admitted with hepatic encephalopathy Subjective Ms. Sandhu was seen & examined during HD this am. The patient lives near [place], [place]. She was admitted to [facility] for management of hepatic encephalopathy. She has ESRD due to T2DM and HTN. She dialyzes TTS via a right upper arm AVF. This morning her fistula is functioning well at Qb 400 cc/min. She indicates that she usually dialyzes for 4 hours to allow adequate UF and to avoid cramping. Ms. Sandhu reports that she is back to her baseline and is able to take her oral medications. She hopes to be discharged to home today. She voices no new medical concerns. Review of Systems Constitutional: No fever Cardiovascular: No chest pain Respiratory: No dyspnea at rest Abdomen: No nausea, No pain, No vomiting Extremities: + leg edema A complete review of systems was performed. Pertinent positives are noted above. All other systems are negative. Vital Signs Last 8 Hrs Date Time Temp Pulse Resp B/P Pulse Ox O2 Delivery O2 Flow Rate FiO2 12/15/16 07:38 36.4 18 132/79 96 Room Air I & O 24-Hour Column 12/15/16 08:00 Intake Total 885 ml Balance 885 ml Last Recorded Weight Weight (Kilograms): 103.200 Physical Exam General Appearance: no apparent distress Head: normocephalic, atraumatic Eyes: PERRL, EOMI Neck: no adenopathy Respiratory/Chest: lungs clear, no respiratory distress Cardiovascular: regular rate, rhythm Abdomen/GI: normal bowel sounds, non tender, soft Extremities/Musculoskelatal: + pedal edema (1+ pretibial pitting edema) Neurologic/Psych: alert, oriented x 3 Laboratory Results Past 24 Hours 12/15/16 08:15 Red Blood Count 3.67, Mean Corpuscular Volume 94.8, Mean Corpuscular Hemoglobin 30.5, Mean Corpuscular Hemoglobin Concent 32.2, Mean Platelet Volume 11.8, Neutrophils (%) (Auto) 74.2, Lymphocytes (%) (Auto) 14.6, Monocytes (%) (Auto) 6.9, Eosinophils (%) (Auto) 3.7, Basophils (%) (Auto) 0.5, Neutrophils # (Auto) 5.45, Lymphocytes # (Auto) 1.07, Monocytes # (Auto) 0.51, Eosinophils # (Auto) 0.27, Basophils # (Auto) 0.04 Test 12/14/16 11:37 12/14/16 16:18 12/14/16 20:01 12/15/16 07:43 Bedside Glucose 197 mg/dl (70-90) 147 mg/dl (70-90) 209 mg/dl (70-90) 196 mg/dl (70-90) Test 12/15/16 08:15 White Blood Count 7.35 K/uL (4.8-10.8) Red Blood Count 3.67 M/uL (4.2-5.4) Hemoglobin 11.2 g/dL (12.0-16.0) Hematocrit 34.8 % (37-47) Mean Corpuscular Volume 94.8 fL (80-100) Mean Corpuscular Hemoglobin 30.5 pg (25-34) Mean Corpuscular Hemoglobin Concent 32.2 g/dl (32-36) Platelet Count 192 K/uL (130-400) Mean Platelet Volume 11.8 fL (7.4-10.4) Neutrophils (%) (Auto) 74.2 % Lymphocytes (%) (Auto) 14.6 % Monocytes (%) (Auto) 6.9 % Eosinophils (%) (Auto) 3.7 % Basophils (%) (Auto) 0.5 % Neutrophils # (Auto) 5.45 K/uL (1.4-6.5) Lymphocytes # (Auto) 1.07 K/uL (1.2-3.4) Monocytes # (Auto) 0.51 K/uL (0.11-0.59) Eosinophils # (Auto) 0.27 K/uL (0-0.5) Basophils # (Auto) 0.04 K/uL (0-0.2) RDW Standard Deviation 49.5 fL (36.4-46.3) RDW Coefficient of Variation 14.3 % (11.5-14.5) Immature Granulocyte % (Auto) 0.1 % Immature Granulocyte # (Auto) 0.01 K/uL (0.00-0.02) Ammonia 31.0 umol/L (11-32) Allergies Coded Allergies: Levofloxacin (Verified Allergy, Mild, rash/redness at IV site, 11/11/16) Iodinated Diagnostic Agents (Verified Allergy, Unknown, unknown, 11/11/16) Losartan (Verified Allergy, Unknown, rash, 11/11/16) Phenobarbital (Verified Allergy, Unknown, difficulty breathing, 11/11/16) Medications Current Inpatient Medications Medications (Trade) Dose Ordered Sig/Ronn Route Start Time Stop Time Status Last Admin Dose Admin Gabapentin (Neurontin) 200 mg HS NG 12/11/16 21:00 01/10/17 20:59 12/14/16 20:18 200 MG Lactulose (Chronulac Syrup) 45 gm TID NG 12/11/16 21:00 01/10/17 20:59 12/15/16 07:47 45 GM Midodrine (Proamatine Tab) 20 mg DAILY NG 12/12/16 09:00 01/11/17 08:59 12/15/16 07:46 20 MG Rifaximin (Xifaxan Tab) 550 mg BID NG 12/11/16 21:00 01/10/17 20:59 12/15/16 07:46 550 MG Simvastatin (Zocor Tab) 20 mg HS NG 12/11/16 21:00 01/10/17 20:59 12/14/16 20:07 20 MG Vitamin B Complex/ Vit C/Folic Acid (Nephrocaps) 1 cap DAILYBD PO 12/12/16 16:15 01/11/17 16:14 Future Hold Insulin Aspart SLIDING SCALE G... ACHS SC 12/11/16 21:00 01/10/17 20:59 12/15/16 08:03 7 UNITS Pantoprazole Sodium/Syringe (Protonix Inj/ Syringe) 10 ml @ 5 mls/min DAILY@11 IV 12/12/16 11:00 01/11/17 10:59 12/14/16 12:36 5 MLS/MIN Estradiol (Estrace Tab) 0.5 mg HS NG 12/11/16 21:00 01/10/17 20:59 12/14/16 20:07 0.5 MG Heparin Sodium (Porcine) (Heparin Sq 5000 Unit/0.5ml) 5,000 unit Q12 SQ 12/11/16 21:00 01/10/17 20:59 12/15/16 07:55 5,000 UNIT Ondansetron HCl (Zofran Inj) 4 mg Q6H PRN IV 12/11/16 19:45 01/10/17 19:44 12/13/16 17:40 4 MG Polyethylene 17 gm 17 gm DAILY PRN NG 12/11/16 19:45 01/10/17 19:44 Ceftriaxone Sodium/Dextrose (Rocephin Inj/D5 50ml) 60 ml @ 100 mls/hr Q24H IV 12/11/16 21:00 12/21/16 20:59 12/14/16 20:18 100 MLS/HR Insulin Glargine (Lantus Solostar Pen) 12 unit HS SC 12/11/16 21:00 01/10/17 20:59 12/14/16 20:17 12 UNIT Sevelamer HCl (Renagel Tab) 1,600 mg TIDM PO 12/11/16 20:00 01/10/17 19:59 12/15/16 07:46 1,600 MG Impression (1) End stage renal disease on dialysis (2) Anemia (3) Autonomic dysfunction (4) Metabolic encephalopathy (5) Secondary hyperparathyroidism of renal origin Yolande is a 66 year-old female with HTN, CAD, DM, GANDHI cirrhosis and ESRD admitted with hepatic encephalopathy. She dialyzes TTS at [facility]. EDW of 106.5 kg. Midodrine prior to treatment for dialytic hypotension. HE clinically improving. She was last dialyzed on Thursday as an inpatient after having missed her treatment. Remains on ceftriaxone as inpatient for reported UTI. Recommendations END STAGE RENAL DISEASE: -- Will provide HD today for 4 hours -- Will attempt 4 L UF to help alleviate peripheral edema -- If patient is discharged to home today she will need to resume her TTS HD schedule tomorrow at the [facility] dialysis unit BLOOD PRESSURE: -- HD RN notified to keep SBP > or = 90 mmHG on HD today -- Continue midodrine for blood pressure support ANEMIA: -- Hgb is above target range of 10 - 11. No acute indication for RYAN today. Will monitor BONE & MINERAL METABOLISM: -- Continue Sevelamer with meals to lower serum PO4 OTHER: -- None.
[2016-12-15 09:19] LABS: BUN/CREATININE RATIO 4.6 (10-20); CALCIUM 9.5 mg/dl (8.5-10.1); CREATININE 9.6 mg/dl (0.60-1.20); POTASSIUM 3.5 mmol/L (3.5-5.1)
[2016-12-15] MEDS: PANTOprazole INJ 40 MG in SYRINGE 0 ML IV SCH (14:16)
[2016-12-15] MEDS ORDERED: LACT10SO17 PO (14:40)
[2016-12-15] MEDS ORDERED: CEPH-571 PO ×2 (14:41→16:58)
--- NOTE | 2016-12-15 14:51 | Discharge Instructions ---
Discharge Instructions Admission Reason for Admission: Altered Mental Status, Pneumonia (Jessica Grier PA-C) Hepatic Encephalopathy (Ludy Loera MD) Discharge Discharge Diagnosis / Problem: Altered mental status; Pneumonia (Jessica Grier PA-C) Discharge Diagnosis / Problem: Hepatic Encephalopathy (NOT PNEUMONIA STATED ABOVE) (Ludy Loera MD) Discharge Goals Goal(s): Decrease discomfort, Improve function, Improve disease control, Learn about illness, Diagnostic testing, Therapeutic intervention, Prevent Disease Progression (Jessica Grier PA-C) Activity Recommendations Activity Limitations: resume your previous activity . (Jessica Grier PA-C) Instructions / Follow-Up Instructions / Follow-Up Medications: 1. Lactulose 30 gm by mouth three times per day 2. Xifaxan 550 mg by mouth twice per day It is VERY important that you take these medications as prescribed. It will cause you to have frequent bowel movements, but this is important in keeping your ammonia levels down to prevent symptoms that caused you to come to the hospital in the first place. Urinary tract infection: Take Keflex 500 mg by mouth twice per day until prescription is complete. START THIS MEDICATION ON 12/16 You may resume all other regular home medications as prescribed to you You have discussed with GI about following up here in [place]. Per your daughter, she has already been in contact with the office to schedule this. Please keep scheduled follow-up appointment You will need to resume your dialysis as scheduled tomorrow (12/16) Please follow-up with your PCP within 5-7 days Please follow-up/keep all of your subspecialty appointments (Jessica Grier PA-C) Current Hospital Diet Patient's current hospital diet: Renal Diet (Jessica Grier PA-C) Discharge Diet Recommended Diet: Renal Diet (Jessica Grier PA-C) Procedures Procedures Performed: 1. KUB x-ray 2. Chest x-ray (Jessica Grier PA-C) Pending Studies Studies pending at discharge: no (Jessica Grier PA-C) Laboratory Results Last 24 Hours Test 12/14/16 16:18 12/14/16 20:01 12/15/16 07:43 12/15/16 08:15 Bedside Glucose 147 mg/dl 209 mg/dl 196 mg/dl White Blood Count 7.35 K/uL Red Blood Count 3.67 M/uL Hemoglobin 11.2 g/dL Hematocrit 34.8 % Mean Corpuscular Volume 94.8 fL Mean Corpuscular Hemoglobin 30.5 pg Mean Corpuscular Hemoglobin Concent 32.2 g/dl Platelet Count 192 K/uL Mean Platelet Volume 11.8 fL Neutrophils (%) (Auto) 74.2 % Lymphocytes (%) (Auto) 14.6 % Monocytes (%) (Auto) 6.9 % Eosinophils (%) (Auto) 3.7 % Basophils (%) (Auto) 0.5 % Neutrophils # (Auto) 5.45 K/uL Lymphocytes # (Auto) 1.07 K/uL Monocytes # (Auto) 0.51 K/uL Eosinophils # (Auto) 0.27 K/uL Basophils # (Auto) 0.04 K/uL RDW Standard Deviation 49.5 fL RDW Coefficient of Variation 14.3 % Immature Granulocyte % (Auto) 0.1 % Immature Granulocyte # (Auto) 0.01 K/uL Sodium Level 139 mmol/L Potassium Level 3.5 mmol/L Chloride Level 99 mmol/L Carbon Dioxide Level 21 mmol/L Anion Gap 19.0 mmol/L Blood Urea Nitrogen 44 mg/dl Creatinine 9.60 mg/dl Est Creatinine Clear Calc Drug Dose 6.4 ml/min Estimated GFR () 4.4 Estimated GFR (Non- 3.8 BUN/Creatinine Ratio 4.6 Random Glucose 176 mg/dl Calcium Level 9.5 mg/dl Ammonia 31.0 umol/L Test 12/15/16 09:18 12/15/16 11:41 Bedside Glucose 100 mg/dl Hemoglobin A1c Test 12/11/16 20:20 Range/Units Estimated Average Glucose 160 mg/dl Hemoglobin A1c 7.2 H 4.5-5.6 % (Jessica Grier, HAVENC) Medical Emergencies . Who to Call and When: Medical Emergencies: If at any time you feel your situation is an emergency, please call 911 immediately. . (Jessica Grier, HAVENC) Non-Emergent Contact Non-Emergency issues call your: Primary Care Provider Call Non-Emergent contact if: you have a fever, your pain is unusual for you, your pain is concerning you, you have any medication questions . (Jessica Grier ., PA-C) . "Provider Documentation" section prepared by Jessica Grier. (Jessica Grier ., PA-C) VTE Core Measure Inpt VTE Proph given/why not?: Unfractionated heparin SQ (Jessica Grier ., PA-C)
--- NOTE | 2016-12-15 15:13 | Discharge Summary ---
Discharge Summary Admission Date: Dec 11, 2016 at 18:35 Discharge Date: Dec 15, 2016 Discharge Disposition: Home with services Principal Diagnosis: Hepatic encephalopathy Problems/Secondary Diagnoses: 1. Non-alcoholic steatohepatitis cirrhosis and subsequent hepatic encephalopathy 2. End-stage renal disease on dialysis 3. Paroxysmal atrial fibrillation 4. Bioprosthetic Aortic valve replacement 2014 5. UTI 6. Type 2 diabetes 7. Postural hypotension 8. Hyperlipidemia Procedures: KUB CLINICAL HISTORY: Enteric tube placement. FINDINGS: An AP, portable, supine abdominal radiograph is obtained. No prior studies are available for comparison at the time of dictation. An enteric tube projects below the diaphragm over the mid stomach. There is no clear radiographic evidence of bowel obstruction. No evidence of intraperitoneal free air is seen on this supine view. Numerous small hyperdensities likely represent colonic contents. The skeletal structures are osteopenic. There is lumbosacral spondylosis. IMPRESSION: 1. An enteric tube projects below the diaphragm over the mid stomach. 2. There is no clear radiographic evidence of bowel obstruction. Electronically signed by: Rito Carbajal M.D. 12/11/2016 10:31 PM Dictated Date/Time: 12/11/2016 10:29 PM The status of this report is Signed. Draft = Not yet reviewed or approved by Radiologist. Signed = Reviewed and approved by Radiologist SINGLE VIEW CHEST CLINICAL HISTORY: CHF. FINDINGS: An AP, portable, upright chest radiograph is obtained. No prior studies are available for comparison at the time of dictation. The examination is degraded by portable technique, large body habitus, and patient rotation. An enteric tube projects below the diaphragm. A 2-lead cardiac pacemaker is in place. The patient is status post midline sternotomy. The heart is enlarged and there is atherosclerotic calcification of the thoracic aorta. There is pulmonary vascular congestion and mild interstitial edema. No large pleural effusion is identified. No pneumothorax is seen. The skeletal structures are osteopenic. The bony thorax is grossly intact. IMPRESSION: 1. Cardiomegaly and cardiac pacemaker. There is evidence of congestive failure with interstitial edema. 2. No large pleural effusion is identified. 3. An enteric tube projects below the diaphragm. Electronically signed by: Rito Carbajal M.D. 12/11/2016 10:29 PM Dictated Date/Time: 12/11/2016 10:28 PM The status of this report is Signed. Draft = Not yet reviewed or approved by Radiologist. Signed = Reviewed and approved by Radiologist. Dialysis Consultations: Nephrology- Dr. Marin and Dr. Valentin GI- Dr. Huynh and Dr. Gandara (Jessica Grier, MONTY) Medication Reconciliation New Medications: Cephalexin (Keflex) 500 Mg Cap 1 CAP PO BID for 2 Days, #4 CAP Changed Medications: Lactulose (Chronulac) 10 Gm/15 Ml Syrp 30 ML PO TID for 30 Days (Changed from: BID) Continued Medications: Estradiol (Estradiol) 0.5 Mg Tab 1 TAB PO HS for 30 Days, #2 TABS 11 Refills Gabapentin (Neurontin) 100 Mg Cap 200 MG PO HS, CAP Insulin Aspart (novoLOG INSULIN PUMP ) 1 Ea Inj 7 UNITS N/A AC, EA Insulin Glargine (Lantus Solostar) 100 Unit/Ml Inj 25 SC HS, PEN Lanthanum Carbonate (Fosrenol) 1,000 Mg Pow MG PO TIDM Lorazepam (Ativan) 0.5 Mg Tab 0.5 MG PO PRN for Anxiety/Agitation, TAB Midodrine (Midodrine HCl) 10 Mg Tab PO MWF Nitroglycerin (Nitroglycerin Lingual) 0.4 Mg/[place] Spr Ondansetron Hcl (Zofran) 4 Mg Tab 4 MG PO BID PRN for Nausea, TAB Pantoprazole (Protonix) 40 Mg Tab 40 MG PO DAILY, #30 TAB Rifaximin (Xifaxan) 550 Mg Tab 1 TAB PO BID for 14 Days, #28 TAB Sevelamer Carbonate (Renvela) 800 Mg Tab 2 TAB PO TID for 90 Days, #540 TAB 3 Refills Simvastatin (Simvastatin) 20 Mg Tab PO HS Vitamin B Cmplx/Vitc/Folic Ac (Nephrocaps) Cap 1 CAP PO DAILYBD for 30 Days, #30 CAP 11 Refills Referrals At Discharge Follow up Referrals: Welfare Administrator Referral - Please Call For Appointment with Maikol Huynh M.D. Discharge Exam Review of Systems: Constitutional: No chills, No fatigue, No fever, No sweats, No weakness Respiratory: No cough, No hemoptysis, No shortness of breath Cardiovascular: + edema, No chest pain, No palpitations Abdomen: + diarrhea, No constipation, No nausea, No pain, No vomiting Musculoskeletal: No calf pain, No joint pain, No muscle pain Genitourinary - Female: No dysuria, No hematuria Neurologic: No numbness/tingling, No weakness Psychiatric: No anxiety, No depression symptoms Hematologic / Lymphatic: No abnormal bleeding/bruising Integumentary: No itch, No new/changing skin lesions, No rash Physical Exam: General Appearance: no apparent distress, + obese, + pertinent finding ( Interviewed patient during dialysis ) Eyes: normal inspection, PERRL ENT: hearing grossly normal Neck: supple Respiratory/Chest: lungs clear, no respiratory distress, no accessory muscle use Cardiovascular: regular rate, rhythm Abdomen / GI: normal bowel sounds, non tender, soft Extremities: no calf tenderness, + swelling (+1 pitting edema of bilateral lower extremities ) Neurologic/Psychiatric: alert, normal mood/affect, oriented x 3 Skin: normal color, warm/dry, no rash (Jessica Grier, MONTY) Hospital Course HPI: This is a 66-year-old female with history of end-stage renal disease, on hemodialysis on Thursday, and Thursday; type 2 diabetes, on insulin; diastolic CHF; GANDHI; presents to [facility] as a transfer from [place] due to acute change of mental status. According to [place], the patient was unable to make her dialysis session and she was directly transferred due to lack of dialysis services here. Unfortunately, the patient unable to provide any history. She is alert, oriented x0, and response to any question is with word "what." It seems like the patient had similar admission in the ER on 11/11/2016 to our services and she was treated for hepatic encephalopathy with hyperammonemia at that time. She was also treated at that time for paroxysmal Afib with episodes of atrial fibrillation and flutter at night during last admission. She converted back to normal sinus rhythm. Cardiology was consulted at that time and recommended if she had any sustained atrial fibrillation with rapid ventricular response, would need to administer AV ly blocking medications such as beta natalya. Calcium channel blockers may cause low blood pressure. The patient in the past absolutely refused any anticoagulation due to history of GI bleed. According to records from [place] , she was seen today for change of mental status and was transferred due to not available dialysis services and also per patient and family's request. They suspected that the patient had an infection in her urine and gave her a dose of intramuscular ceftriaxone. They also checked her CT scan of the head without contrast that showed negative for acute intracranial process, stable appearance of the small left frontal meningioma, no significant change compared to 2016. Chest x-ray showed increasing CHF, fluid overload, early interstitial edema as compared to the study of 11/11/2016. She did receive 1 dose of 20 grams of lactulose at [place]. Her labs were checked there. INR was 1.0. Prothrombin time 10.8. Her BMP showed glucose of 231, BUN of 49, creatinine 9.0 , sodium 135, potassium 4.8, chloride 95, total CO2 of 26, calcium of 9.0. AST of 19, ALT of 13, alkaline phosphatase of 217, total bilirubin 0.6, albumin of 3.2, myoglobin of 146, anion gap of 19, ammonia of 242. Troponin of 0.04. CBC was done there, showed white blood cell count of 5.6, hematocrit of 33.2, platelets of 114. Blood gas was done, pH of 7.4, CO2 of 40, O2 of 82, bicarbonate of 24, CO2 of 25. Urinalysis showed 1+ protein, trace ketones, large amount of leukocyte esterase, 10-14 red blood cells, epithelial cells, renal epithelial cells and 4+ bacteria. Non-alcoholic steatohepatitis cirrhosis and subsequent hepatic encephalopathy: - Treated with Lactulose 45 grams TID with Rifaximin 550 mg PO BID - Removed NGT 12/12 due to improved mentation - Ammonia has improved and GI medicine is following will need to arrange follow up at discharge Per patient, she was having difficulty with taking Lactulose routinely because of fatigue from dialysis--> she would sleep throughout the day on dialysis days and miss her Lactulose doses. Also, patient stopped taking Rifaximin because she thought it was causing her frequent yeast infections--> found no indication of this. Discussed with patient and daughter the importance of taking these medications as prescribed. Daughter states she has been in contact with GI and they are going to call her with a follow-up appointment. End-stage renal disease, restart dialysis: - Continue with phosphate binders, K is slightly low 12/13 will follow before repletion, dialysis 12/15 prior to discharge Resume dialysis on 12/16 as scheduled--> Thursday, , Thursday Paroxysmal atrial fibrillation, currently normal sinus rhythm Bioprosthetic Aortic valve replacement 2014, refuses anticoagulation due to previous GI bleed Suspected urinary tract infection POA: - Ceftriaxone 1000 mg started on 12/11 Urine culture growing Enterococcus Faecalis- discharge with Keflex 500 mg PO BID x2 more days Type 2 diabetes: - Reduced basal dose due to questionable PO intake - BSG ACHS with sliding insulin scale Resume home regimen at discharge Postural hypotension- Continue Midodrine Deep venous thrombosis prophylaxis is heparin subcutaneously PT/OT consulted- OK for discharge home with home health Hyperlipidemia: Continue Simvastatin Code Status: LEVEL I, FULL Dispo: Discharge to home with health services Total Time Spent: Greater than 30 minutes This includes examination of the patient, discharge planning, medication reconciliation, and communication with other providers. (Jessica Grier PA-C) Discharge Instructions Please refer to the electronic Patient Visit Report (Discharge Instructions) for additional information. (eJssica Grier PA-C) Follow-Up Please follow-up with your PCP within 5-7 days Please keep scheduled follow-up with GI Please follow-up/keep all of your subspecialty appointments Dialysis at [facility] tomorrow (12/16) (Jessica Grier PA-C) Additional Copies To Connie Frost D.O. Reviewed: Pt Seen/Exam by , FELIZ Notes, Labs, RAD (Ludy Loera MD) History Physician [employer] M[employer] Supervision Note: I interviewed and examined the patient. Discussed with FOZIA Grier and agree with findings and plan as documented in the note. Any exceptions or clarifications are listed here: Much improved, mentating well, feeling well. Vitals reviewed NAD, obese, AAOx3 irreg irreg with normal rate, 3/6 ROSS at [facility] CTAB no wcr Abd soft, obese, NT ND No edema A/P: 66 yo female with GANDHI cirrhosis, ESRD on HD and with hepatic encephalopathy. DOing well after restarting home Xifaxin, lacutlose, receiced HD. Ready for discharge home with close f/u. Documented By: Ludy Loera (Ludy Loera MD)
[2016-12-15] MEDS ORDERED: OSEL30CA PO (15:47)
[2016-12-15] MEDS ORDERED: CLOT1CRE3 PV (15:47)
[2016-12-15 16:14] LABS: HEPATITIS B AB POS
[2016-12-15] MEDS ORDERED: OSELTAMIVIR PHOSPHATE SUSP 30 MG/5 ML UDP PO ONE (16:30)
[2017-03-13] MEDS ORDERED: PROB1TAB16 PO (08:40)
[2017-03-13] MEDS ORDERED: NVLGI/PEN SC (08:40)
[2017-03-13] MEDS ORDERED: PROC1TAB5 PO (08:40)
[2017-03-13] MEDS ORDERED: RIFA550T2 PO (08:40)
[2017-03-13] MEDS ORDERED: LANT1000 PO (08:40)
[2017-03-13] MEDS ORDERED: LACT10SO17 PO (08:44)
== END 2016-12-15 17:11 | disposition home health service (06) | DRG 441 ==
LOC: ENRESERVDT → ENRESERVTM → C.2E 18:35 → UNDOADMIN 18:35 → C.MS4W 12-13 15:30 → C.2E 12-13 15:30
PROVIDERS: ADMIT Internal Medicine; ATTEND Family Medicine
DX: K72.90 Hepatic failure, unspecified without coma (principal); N18.6 End stage renal disease; G92 Toxic encephalopathy; I50.30 Unspecified diastolic (congestive) heart failure; E72.20 Disorder of urea cycle metabolism, unspecified; N39.0 Urinary tract infection, site not specified; N25.81 Secondary hyperparathyroidism of renal origin; I13.2 Hypertensive heart and chronic kidney disease with heart failure and with stage 5 chronic kidney disease, or end stage renal disease; B95.2 Enterococcus as the cause of diseases classified elsewhere; K75.81 Nonalcoholic steatohepatitis (NASH); I48.0 Paroxysmal atrial fibrillation; E11.22 Type 2 diabetes mellitus with diabetic chronic kidney disease; I95.1 Orthostatic hypotension; E78.5 Hyperlipidemia, unspecified; D64.9 Anemia, unspecified; I25.10 Atherosclerotic heart disease of native coronary artery without angina pectoris; E83.89 Other disorders of mineral metabolism; G90.8 Other disorders of autonomic nervous system; Z91.14 Patient's other noncompliance with medication regimen; Z91.15 Patient's noncompliance with renal dialysis; Z53.29 Procedure and treatment not carried out because of patient's decision for other reasons; Z99.2 Dependence on renal dialysis; Z95.5 Presence of coronary angioplasty implant and graft; Z95.3 Presence of xenogenic heart valve; Z95.1 Presence of aortocoronary bypass graft; Z95.0 Presence of cardiac pacemaker; Z87.19 Personal history of other diseases of the digestive system; Z79.890 Hormone replacement therapy; Z79.4 Long term (current) use of insulin; Z79.899 Other long term (current) drug therapy

== ENCOUNTER → 2017-04-15 | Day surgery (SDC) | payer OTHER, BC ==
[2017-03-13 08:47] VITALS: Ht 157.5 cm; Wt 99.1 kg
[~2017-04-15] VITALS: Ht 157.5 cm; Wt 99.1 kg
[~2017-04-15] MED LIST changes: -INSPMPNVLG; -LACT10SO17; +LACT10SO17 PO; +LANT1000 PO; +LIDOCAINE HCL 2% 2 ML VIAL (20MG/ML) ONE; -NITR0.4S76; +NVLGI/PEN SC; -ONDA4TAB46 PO; +PHENYLEPHRINE 100MCG/ML 5ML SYR ONE; +PROB1TAB16 PO; +PROC1TAB5 PO; +PROPOFOL IV EMULSION 10 MG/ML 20 ML VIAL IV ONE; +SODIUM CHLORIDE 0.9% 500ML 500 ML IV ONE; -ZCR20 PO; -[UNRECOGNIZED DRUG - CODE] PO
[2017-04-15 12:56] LABS: ISTAT CREATININE 5.3 mg/dl (0.6-1.3); ISTAT HEMOGLOBIN 11.6 g/dl (12.0-16.0); ISTAT IONIZED CALCIUM 1.12 mmol/l (1.12-1.32)
--- NOTE | 2017-04-15 13:21 | Endo History and Physical ---
History & Physical Date of Service: Apr 15, 2017. Chief Complaint: ANEMIA Referring Physician: DR. TIDWELL History of Present Illness anemia Past Surgical History Hx Cardiac Surgery: Yes (MULTIPLE HEART CATHS, NO STENTS; MITRAL VALVE REPLACEMENT) Hx Internal Defibrillator: No Hx Pacemaker: Yes (2-2014) Hx Abdominal Surgery: Yes (DIMAS BSO, X2, TUBAL LIGATION) Hx of Implantable Prosthesis: No Hx Post-Op Nausea and Vomiting: No Hx Cancer Surgery: No Hx Thoracic Surgery: No Hx Orthopedic: No Hx Urinary Tract Surgery: No Family History Polyp Social History Smoking Status: Never Smoker Hx Substance Use: No Hx Alcohol Use: No Allergies Coded Allergies: Levofloxacin (Verified Allergy, Mild, rash/redness at IV site, 03/13/17) Iodinated Diagnostic Agents (Verified Allergy, Unknown, GI UPSET, 03/13/17) Losartan (Verified Allergy, Unknown, rash, 03/13/17) Phenobarbital (Verified Allergy, Unknown, difficulty breathing, 03/13/17) Current Medications Reported Home Medications Medications Dose Route/Sig Max Daily Dose Days Date Category Dose Instructions Chronulac (Lactulose) 10 Gm/15 Ml Syrp 45 Ml PO TID 03/13/17 Reported Novolog Flexpen (Insulin Aspart) 100 Units/Ml Inj 10 Units SC TIDM 03/13/17 Reported Xifaxan (Rifaximin) 550 Mg Tab 550 Mg PO BID 03/13/17 Reported Fosrenol (Lanthanum Carbonate) 1,000 Mg Chw 1 Tab PO TIDM 03/13/17 Reported Compazine (Prochlorperazine Maleate) 10 Mg Tab 25 Mg PO QAM 03/13/17 Reported Probiotic (Probiotic Product) 1 Tab Tab 1 Tab PO QAM 03/13/17 Reported Nephrocaps (Vitamin B Complex/Vit C/Folic Acid) Cap 1 Cap PO QPM 11/11/16 Reported Neurontin (Gabapentin) 100 Mg Cap 2 Tabs PO HS 11/11/16 Reported Lantus Solostar (Insulin Glargine) 100 Unit/Ml Inj 50 Units SC HS 11/11/16 Reported Estradiol 0.5 Mg Tab 1 Tab PO HS 11/11/16 Reported Ativan (Lorazepam) 0.5 Mg Tab 0.5 Mg PO DAILY PRN 11/11/16 Reported Renvela (Sevelamer Carbonate) 800 Mg Tab 2 Tabs PO TIDM 11/11/16 Reported Protonix (Pantoprazole Sodium) 40 Mg Tab 40 Mg PO QAM 11/11/16 Reported Midodrine HCl (Midodrine) 10 Mg Tab 1 Tab PO 3XWK 11/11/16 Reported 1 TAB PRIOR TO DIALYSIS ON THURSDAY, THURSDAY, AND THURSDAY Vital Signs Weight (Kilograms): 99.09 Height (Feet): 5 Height (Inches): 2 Date Time Temp Pulse Resp B/P (MAP) Pulse Ox O2 Delivery O2 Flow Rate FiO2 04/15/17 12:29 36.8 77 20 87/50 (62) 97 Room Air Physical Exam [id number] s1s2 Lungs CTA Abd soft Nt/ND + BS - CCE Assessment and Plan EGD for anemia
--- NOTE | 2017-04-15 14:01 | GI REPORT ---
Procedure Date: 04/15/2017 1:17 PM Procedure: Upper GI endoscopy Indications: Heme positive stool, Occult blood in stool, Suspected upper gastrointestinal bleeding Medicines: Propofol per Anesthesia Complications: No immediate complications. Estimated blood loss: Minimal. Estimated Blood Loss: Estimated blood loss was minimal. Procedure: Pre-Anesthesia Assessment: - Prior to the procedure, a History and Physical was performed, and patient medications and allergies were reviewed. The patient's tolerance of previous anesthesia was also reviewed. The risks and benefits of the procedure and the sedation options and risks were discussed with the patient. All questions were answered, and informed consent was obtained. Prior Anticoagulants: The patient has taken no previous anticoagulant or antiplatelet agents. ASA Grade Assessment: IV - A patient with severe systemic disease that is a constant threat to life. After reviewing the risks and benefits, the patient was deemed in satisfactory condition to undergo the procedure. After obtaining informed consent, the endoscope was passed under direct vision. Throughout the procedure, the patient's blood pressure, pulse, and oxygen saturations were monitored continuously. The scope was introduced through the mouth, and advanced to the second part of duodenum. The upper GI endoscopy was accomplished without difficulty. The patient tolerated the procedure well. Findings: The examined esophagus was normal. 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 Fulguration to ablate the lesion to prevent bleeding by argon plasma was successful. Estimated blood loss was minimal. A few less than 1 mm bleeding angiodysplastic lesions were found in the gastric body. Fulguration to stop the bleeding by argon plasma was successful. Two ligatures were successfully placed. Bleeding had stopped at the end of the procedure. Mild portal hypertensive gastropathy was found in the entire examined stomach. The examined duodenum was normal. The cardia and gastric fundus were normal on retroflexion. Retained gastric contents are not identified on this exam. Impression: - Normal esophagus. - Gastric antral vascular ectasia without bleeding. Treated with argon plasma coagulation (APC). - A few bleeding angiodysplastic lesions in the stomach. Treated with argon plasma coagulation (APC). Ligated. - Portal hypertensive gastropathy. - Normal examined duodenum. - No specimens collected. Recommendation: - Discharge patient to home (ambulatory). - Consider beta natalya - non selective ( Propranol or naldolol) follow Hb serially. MD Jamar Orozco MD 04/15/2017 2:00:28 PM This report has been signed electronically. Note Initiated On: 04/15/2017 1:17 PM I attest to the content of the Intraoperative Record and orders documented therein, exceptions below
[2017-04-15 14:10] VITALS: BP 89/51; PULSE 65; O2SAT 95
--- NOTE | 2017-04-15 14:12 | Discharge Instructions ---
Endoscopy Patient Instructions Date / Procedure(s) Performed Apr 15, 2017. EGD Allergy Information Coded Allergies: Levofloxacin (Verified Allergy, Mild, rash/redness at IV site, 03/13/17) Iodinated Diagnostic Agents (Verified Allergy, Unknown, GI UPSET, 03/13/17) Losartan (Verified Allergy, Unknown, rash, 03/13/17) Phenobarbital (Verified Allergy, Unknown, difficulty breathing, 03/13/17) Discharge Date / Findings Apr 15, 2017. 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 Medication Instructions Restart Stopped Medication(s): Reported Home Medications Medications Dose Route/Sig Max Daily Dose Days Date Category Dose Instructions Chronulac (Lactulose) 10 Gm/15 Ml Syrp 45 Ml PO TID 03/13/17 Reported Novolog Flexpen (Insulin Aspart) 100 Units/Ml Inj 10 Units SC TIDM 03/13/17 Reported Xifaxan (Rifaximin) 550 Mg Tab 550 Mg PO BID 03/13/17 Reported Fosrenol (Lanthanum Carbonate) 1,000 Mg Chw 1 Tab PO TIDM 03/13/17 Reported Compazine (Prochlorperazine Maleate) 10 Mg Tab 25 Mg PO QAM 03/13/17 Reported Probiotic (Probiotic Product) 1 Tab Tab 1 Tab PO QAM 03/13/17 Reported Nephrocaps (Vitamin B Complex/Vit C/Folic Acid) Cap 1 Cap PO QPM 11/11/16 Reported Neurontin (Gabapentin) 100 Mg Cap 2 Tabs PO HS 11/11/16 Reported Lantus Solostar (Insulin Glargine) 100 Unit/Ml Inj 50 Units SC HS 11/11/16 Reported Estradiol 0.5 Mg Tab 1 Tab PO HS 11/11/16 Reported Ativan (Lorazepam) 0.5 Mg Tab 0.5 Mg PO DAILY PRN 11/11/16 Reported Renvela (Sevelamer Carbonate) 800 Mg Tab 2 Tabs PO TIDM 11/11/16 Reported Protonix (Pantoprazole Sodium) 40 Mg Tab 40 Mg PO QAM 11/11/16 Reported Midodrine HCl (Midodrine) 10 Mg Tab 1 Tab PO 3XWK 11/11/16 Reported 1 TAB PRIOR TO DIALYSIS ON THURSDAY, THURSDAY, AND THURSDAY Reported Home Medications Medications Dose Route/Sig Max Daily Dose Days Date Category Dose Instructions Chronulac (Lactulose) 10 Gm/15 Ml Syrp 45 Ml PO TID 03/13/17 Reported Novolog Flexpen (Insulin Aspart) 100 Units/Ml Inj 10 Units SC TIDM 03/13/17 Reported Xifaxan (Rifaximin) 550 Mg Tab 550 Mg PO BID 03/13/17 Reported Fosrenol (Lanthanum Carbonate) 1,000 Mg Chw 1 Tab PO TIDM 03/13/17 Reported Compazine (Prochlorperazine Maleate) 10 Mg Tab 25 Mg PO QAM 03/13/17 Reported Probiotic (Probiotic Product) 1 Tab Tab 1 Tab PO QAM 03/13/17 Reported Nephrocaps (Vitamin B Complex/Vit C/Folic Acid) Cap 1 Cap PO QPM 11/11/16 Reported Neurontin (Gabapentin) 100 Mg Cap 2 Tabs PO HS 11/11/16 Reported Lantus Solostar (Insulin Glargine) 100 Unit/Ml Inj 50 Units SC HS 11/11/16 Reported Estradiol 0.5 Mg Tab 1 Tab PO HS 11/11/16 Reported Ativan (Lorazepam) 0.5 Mg Tab 0.5 Mg PO DAILY PRN 11/11/16 Reported Renvela (Sevelamer Carbonate) 800 Mg Tab 2 Tabs PO TIDM 11/11/16 Reported Protonix (Pantoprazole Sodium) 40 Mg Tab 40 Mg PO QAM 11/11/16 Reported Midodrine HCl (Midodrine) 10 Mg Tab 1 Tab PO 3XWK 11/11/16 Reported 1 TAB PRIOR TO DIALYSIS ON THURSDAY, THURSDAY, AND THURSDAY Provider Instructions Activity Restrictions - No exercising or heavy lifting for 24 hours. - Do not drink alcohol the day of the procedure. - Do not drive a car or operate machinery until the day after the procedure. - Do not make any important decisions or sign important papers in 24 hours after the procedure. Following Day: - Return to full activity which may include returning to work/school. Diet Start your diet with liquids and light foods (jello, soup, juice, toast). Then eat your usual diet if not nauseated. Treatment For Common After Affects For mild abdominal pain, bloating, or excessive gas: - Rest - Eat lightly - Lie on right side Follow-Up Information Follow-up with DR. TIDWELL as scheduled Anesthesia Information What You Should Know You have had a procedure that required some medicine to reduce anxiety and discomfort. This treatment is called moderate sedation. After receiving the treatment, you may be sleepy, but you will be able to breathe on your own. The effects of the treatment may last for several hours. Follow these instructions along with Activity/Diet recommendations noted above: * Do NOT do anything where dizziness or clumsiness would be dangerous. * Rest quietly at home today, then you can be up and about tomorrow. * Have a responsible person stay with you the rest of today. * You may have had an I.V. today. If so, you may take the dressing off later today. Recommendations Call your doctor if: * Trouble breathing * Continuous vomiting for more than 24 hours * Temperature above 101 degrees * Severe abdominal pain or bloating * Pain not relieved by pain medicine ordered * There is increased drainage or redness from any incision * A large amount of rectal bleeding greater than 2-3 tablespoons. (If you had a polyp/s removed or have hemorrhoids, a small amount of blood - from the rectum is to be expected.) * You have any unanswered questions or concerns. IN THE EVENT OF A SERIOUS EMERGENCY, GO TO THE NEAREST EMERGENCY ROOM Your discharge instructions were prepared by provider Jamar Gandara. Patient Instructions Signature Page Yolande Sandhu Patient (or Guardian) Signature/Date: I have read and understand the instructions given to me by my caregivers. Caregiver/RN/Doctor Signature/Date: The above-named patient and/or guardian has received patient instructions on this date. + Original Patient Signature Page (only) stays with chart. Please make copy for patient.
--- NOTE | 2017-04-15 14:21 | Anesthesiology Progress Note ---
Anesthesia Post Op Note Date & Time Apr 15, 2017 at 14:21 Vital Signs Pain Intensity: 0 Vital Signs Past 12 Hours Date Time Temp Pulse Resp B/P (MAP) Pulse Ox O2 Delivery O2 Flow Rate FiO2 04/15/17 14:01 67 20 95/50 (65) 95 Room Air 04/15/17 13:51 68 20 94/48 (63) 96 Room Air 04/15/17 12:29 36.8 77 20 87/50 (62) 97 Room Air Notes Mental Status: alert / awake / arousable, participated in evaluation Pt Amnestic to Procedure: Yes Nausea / Vomiting: adequately controlled Pain: adequately controlled Airway Patency, RR, SpO2: stable & adequate BP & HR: stable & adequate Hydration State: stable & adequate Anesthetic Complications: no major complications apparent
== END | disposition home or self-care (01) ==
LOC: C.GI 12:04
PROVIDERS: ATTEND Internal Medicine Gastroenterology
DX: K31.811 Angiodysplasia of stomach and duodenum with bleeding (principal); K31.89 Other diseases of stomach and duodenum; D64.9 Anemia, unspecified; Z95.2 Presence of prosthetic heart valve; Z79.4 Long term (current) use of insulin; Z79.899 Other long term (current) drug therapy; Z83.71 Family history of colonic polyps